=== PATIENT | male | born 1955 | race Caucasian/White ===

== ENCOUNTER 2021-01-03 15:05 | Outpatient (REF) | payer MEDICARE, SELFPAY ==
[2021-01-03 16:48] LABS: Anion Gap 14 (12-20); Blood Urea Nitrogen 28 mg/dL (9-16); Calcium 9.1 mg/dL (8.4-10.2); Carbon Dioxide 27 mmol/L (22-29); Chloride 100 mmol/L (96-108); Estimated Glomerular Filt Rate 48; Glucose Random 108 mg/dL (60-115); Potassium 4.5 mmol/L (3.3-5.1); Sodium 136 mmol/L (135-145)
== END 2021-01-03 15:06 | disposition home or self-care (01) ==
LOC: HO.HMGCLDS 15:05
PROVIDERS: PCP Internal Medicine; Visit Provider Internal Medicine
DX: I10 Essential (primary) hypertension (principal); E78.9 Disorder of lipoprotein metabolism, unspecified; R79.89 Other specified abnormal findings of blood chemistry
CPT/HCPCS: 36415; 80048

== ENCOUNTER 2021-06-25 14:53 | Outpatient (REF) | payer MEDICARE, SELFPAY ==
[2021-06-25 16:29] LABS: MANUAL DIFF FLAG NO
[2021-06-25 16:34] LABS: Glucose Urine UA NEG (NEG); Leukocyte Esterase Urine NEG (NEG); Nitrite Urine NEG (NEG); Specific Gravity - Urine >= 1.030 (1.005-1.025); Urine Blood NEG (NEG); Urine Ketones NEG (NEG); Urine Protein NEG (NEG-TRACE)
[2021-06-25 16:35] LABS: Appearance Urine CLEAR; Color Urine YELLOW
[2021-06-25 16:37] LABS: Hemoglobin 15.1 g/dl (14.0-18.0)
[2021-06-25 16:39] LABS: Basophils Percent Auto 0.3 % (0-2); Eosinophils Absolute Auto 0.1 X10*3/uL (0.0-0.4); Eosinophils Percent Auto 1.2 % (0-4); Hematocrit 44.8 % (42-52); Hemoglobin 15.2 g/dl (14.0-18.0); Imm Gran Abs Auto 0.05 X10*3/uL (0.00-0.03); Imm Gran Pct Auto 0.7 % (0.0-0.4); Lymphocytes Absolute Auto 1.5 X10*3/uL (1.2-4.9); Lymphocytes Percent Auto 19.7 % (20-40); Mean Corpuscular HGB Conc 33.9 g/dl (31.0-36.0); Mean Corpuscular Hemoglobin 34.8 pg (27.0-33.0); Mean Corpuscular Volume 102.5 fL (80-98); Mean Platelet Volume 11.1 fL (9.4-12.4); Monocytes Absolute Auto 0.7 X10*3/uL (0.1-1.2); Monocytes Percent Auto 8.7 % (2-11); Neutrophils Absolute Auto 5.3 X10*3/uL (2.0-8.3); Neutrophils Percent Auto 69.4 % (45-73); Platelet Count 177 X10*3/uL (160-400); Red Blood Count 4.37 X10*6/uL (4.60-5.80); Red Cell Distribution Width 12.8 % (11.0-16.0); White Blood Count 7.6 X10*3/uL (4.8-10.8)
[2021-06-25 16:51] LABS: Bacteria Urine 1+ /LPF; RBC Urine 0 /HPF (0); WBC Urine 0 /HPF (0-4)
[2021-06-25 16:56] LABS: Anion Gap 14 (12-20); Blood Urea Nitrogen 20 mg/dL (9-16); Calcium 9.2 mg/dL (8.4-10.2); Carbon Dioxide 26 mmol/L (22-29); Chloride 104 mmol/L (96-108); Estimated Glomerular Filt Rate 55; Sodium 139 mmol/L (135-145)
[2021-06-25 18:00] LABS: Creatinine Urine 245.01 mg/dL; Microalbum/Creatinine Ratio Ur 6.1 ug/mg cr; Protein/Creatinine Ratio, Ur 0.05 (<0.2); Total Protein Urine Random 12 mg/dL (<12)
== END 2021-06-25 14:54 | disposition home or self-care (01) ==
LOC: HO.HMGCLDS 14:53
PROVIDERS: PCP Internal Medicine; Visit Provider Internal Medicine
DX: I10 Essential (primary) hypertension (principal); R79.89 Other specified abnormal findings of blood chemistry; N28.9 Disorder of kidney and ureter, unspecified
CPT/HCPCS: 36415; 80051; 81001; 82043; 82310; 82565; 84156; 84520; 85014; 85018; 85025

== ENCOUNTER 2021-08-23 12:22 | Outpatient (REF) | payer MEDICARE, SELFPAY ==
[2021-08-26 04:10] LABS: SARS COV2 IgG Negative (Negative)
== END 2021-08-23 12:23 | disposition home or self-care (01) ==
LOC: HO.HMGCLDS 12:22
PROVIDERS: PCP Internal Medicine; Visit Provider Internal Medicine
DX: Z01.84 Encounter for antibody response examination (principal)
CPT/HCPCS: 36415; 86769

== ENCOUNTER 2022-03-05 12:24 | Outpatient (REF) | payer OTHER, MEDICARE, SELFPAY ==
[2022-03-05 14:24] LABS: TSH reflex Free T4 7.17 uIU/mL (0.32-4.0)
[2022-03-05 14:34] LABS: Alanine Aminotransferase 12 U/L (0-40); Albumin Level 3.9 g/dL (3.5-5.0); Alkaline Phosphatase 79 U/L (39-117); Anion Gap 14 (12-20); Aspartate Amino Transferase 17 U/L (5-37); Bilirubin Total 0.6 mg/dL (0.0-1.0); Blood Urea Nitrogen 16 mg/dL (9-16); Calcium 9.8 mg/dL (8.4-10.2); Carbon Dioxide 26 mmol/L (22-29); Chloride 104 mmol/L (96-108); Estimated Glomerular Filt Rate > 60; Glucose Random 110 mg/dL (60-115); Sodium 138 mmol/L (135-145); Total Protein 6.9 g/dL (6.5-8.0)
[2022-03-05 15:37] LABS: Free T4 (Free Thyroxine) 1.06 ng/dL (0.71-1.85)
[2022-03-06 05:04] LABS: SARS COV2 IgG Positive (Negative)
== END 2022-03-05 12:25 | disposition home or self-care (01) ==
LOC: HO.HMGCLDS 12:24
PROVIDERS: PCP Internal Medicine; Visit Provider Internal Medicine
DX: E78.9 Disorder of lipoprotein metabolism, unspecified (principal); F41.1 Generalized anxiety disorder; I10 Essential (primary) hypertension; J06.9 Acute upper respiratory infection, unspecified; N28.9 Disorder of kidney and ureter, unspecified; E03.8 Other specified hypothyroidism
CPT/HCPCS: 36415; 80053; 84439; 84443; 86769

== ENCOUNTER 2022-06-04 14:54 | Outpatient (REF) | payer OTHER, SELFPAY ==
[2022-06-04 16:55] LABS: Alanine Aminotransferase 10 U/L (0-40); Alkaline Phosphatase 79 U/L (39-117); Anion Gap 14 (12-20); Aspartate Amino Transferase 16 U/L (5-37); Bilirubin Total 0.7 mg/dL (0.0-1.0); Blood Urea Nitrogen 23 mg/dL (9-16); Calcium 8.8 mg/dL (8.4-10.2); Carbon Dioxide 24 mmol/L (22-29); Chloride 107 mmol/L (96-108); Estimated Glomerular Filt Rate 49; Glucose Random 110 mg/dL (60-115); Potassium 4.7 mmol/L (3.3-5.1); Sodium 140 mmol/L (135-145); Total Protein 6.6 g/dL (6.5-8.0)
[2022-06-04 17:15] LABS: TSH reflex Free T4 2.89 uIU/mL (0.32-4.0)
== END 2022-06-04 14:55 | disposition home or self-care (01) ==
LOC: HO.HMGCLDS 14:54
PROVIDERS: PCP Internal Medicine; Visit Provider Internal Medicine
DX: E78.9 Disorder of lipoprotein metabolism, unspecified (principal); F41.1 Generalized anxiety disorder; I10 Essential (primary) hypertension; N28.9 Disorder of kidney and ureter, unspecified; N52.9 Male erectile dysfunction, unspecified; E03.8 Other specified hypothyroidism; F17.200 Nicotine dependence, unspecified, uncomplicated
CPT/HCPCS: 36415; 80053; 84443

== ENCOUNTER 2022-09-03 14:43 | Outpatient (REF) | payer OTHER, SELFPAY ==
[2022-09-03 16:47] LABS: MANUAL DIFF FLAG NO
[2022-09-03 17:00] LABS: Basophils Percent Auto 0.5 % (0-2); Eosinophils Absolute Auto 0.1 X10*3/uL (0.0-0.4); Eosinophils Percent Auto 1.7 % (0-4); Hematocrit 45.2 % (42.0-52.0); Hemoglobin 15.2 g/dl (14.0-18.0); Imm Gran Abs Auto 0.02 X10*3/uL (0.00-0.03); Imm Gran Pct Auto 0.3 % (0.0-0.4); Lymphocytes Absolute Auto 1.6 X10*3/uL (1.2-4.9); Lymphocytes Percent Auto 26.2 % (20-40); Mean Corpuscular HGB Conc 33.6 g/dl (31.0-36.0); Mean Corpuscular Hemoglobin 33.6 pg (27.0-33.0); Mean Platelet Volume 11.2 fL (9.4-12.4); Monocytes Absolute Auto 0.6 X10*3/uL (0.1-1.2); Monocytes Percent Auto 9.7 % (2-11); Neutrophils Absolute Auto 3.7 x10*3/uL (2.0-8.3); Neutrophils Percent Auto 61.6 % (45-73); Platelet Count 167 X10*3/uL (160-400); Red Blood Count 4.52 X10*6/uL (4.60-5.80); Red Cell Distribution Width 13.1 % (11.0-16.0)
[2022-09-03 17:12] LABS: Alanine Aminotransferase 9 U/L (0-40); Alkaline Phosphatase 80 U/L (39-117); Anion Gap 15 (12-20); Aspartate Amino Transferase 16 U/L (5-37); Bilirubin Total 0.5 mg/dL (0.0-1.0); Blood Urea Nitrogen 17 mg/dL (9-16); Calcium 9.5 mg/dL (8.4-10.2); Carbon Dioxide 27 mmol/L (22-29); Chloride 103 mmol/L (96-108); Estimated Glomerular Filt Rate 53; Glucose Random 100 mg/dL (60-115); Potassium 4.9 mmol/L (3.3-5.1); Sodium 140 mmol/L (135-145); Total Protein 6.6 g/dL (6.5-8.0)
== END 2022-09-03 14:44 | disposition home or self-care (01) ==
LOC: HO.HMGCLDS 14:43
PROVIDERS: PCP Internal Medicine; Visit Provider Internal Medicine
DX: E78.9 Disorder of lipoprotein metabolism, unspecified (principal); F41.1 Generalized anxiety disorder; E03.8 Other specified hypothyroidism; R79.89 Other specified abnormal findings of blood chemistry; I10 Essential (primary) hypertension; N28.9 Disorder of kidney and ureter, unspecified; F17.200 Nicotine dependence, unspecified, uncomplicated; N52.9 Male erectile dysfunction, unspecified
CPT/HCPCS: 36415; 80053; 85025

== ENCOUNTER 2022-12-26 15:20 | Outpatient (REF) | payer OTHER, SELFPAY ==
[2022-12-26 16:30] LABS: MANUAL DIFF FLAG NO
[2022-12-26 16:32] LABS: Basophils Percent Auto 0.5 % (0-2); Eosinophils Absolute Auto 0.1 X10*3/uL (0.0-0.4); Eosinophils Percent Auto 1.5 % (0-4); Hematocrit 45.8 % (42.0-52.0); Hemoglobin 15.8 g/dl (14.0-18.0); Imm Gran Abs Auto 0.03 X10*3/uL (0.00-0.03); Imm Gran Pct Auto 0.5 % (0.0-0.4); Lymphocytes Absolute Auto 1.5 X10*3/uL (1.2-4.9); Lymphocytes Percent Auto 22.7 % (20-40); Mean Corpuscular HGB Conc 34.5 g/dl (31.0-36.0); Mean Corpuscular Hemoglobin 34.6 pg (27.0-33.0); Mean Corpuscular Volume 100.2 fL (80.0-98.0); Mean Platelet Volume 11.1 fL (9.4-12.4); Monocytes Absolute Auto 0.5 X10*3/uL (0.1-1.2); Neutrophils Absolute Auto 4.4 x10*3/uL (2.0-8.3); Neutrophils Percent Auto 66.8 % (45-73); Platelet Count 138 X10*3/uL (160-400); Red Blood Count 4.57 X10*6/uL (4.60-5.80); Red Cell Distribution Width 12.8 % (11.0-16.0); White Blood Count 6.5 X10*3/uL (4.8-10.8)
[2022-12-26 17:12] LABS: Alanine Aminotransferase 18 U/L (0-40); Alkaline Phosphatase 72 U/L (39-117); Anion Gap 14 (12-20); Aspartate Amino Transferase 21 U/L (5-37); Bilirubin Total 0.8 mg/dL (0.0-1.0); Blood Urea Nitrogen 17 mg/dL (9-16); Calcium 9.3 mg/dL (8.4-10.2); Carbon Dioxide 25 mmol/L (22-29); Chloride 103 mmol/L (96-108); Estimated Glomerular Filt Rate 58; Glucose Random 91 mg/dL (60-115); Potassium 4.9 mmol/L (3.3-5.1); Sodium 137 mmol/L (135-145); Total Protein 6.4 g/dL (6.5-8.0)
[2022-12-26 17:26] LABS: TSH reflex Free T4 3.51 uIU/mL (0.32-4.0)
[2022-12-27 08:59] LABS: LDL Cholesterol Direct 56 mg/dL (<100)
== END 2022-12-26 15:21 | disposition home or self-care (01) ==
LOC: HO.HMGCLDS 15:20
PROVIDERS: PCP Internal Medicine; Visit Provider Internal Medicine
DX: E03.8 Other specified hypothyroidism (principal); E78.9 Disorder of lipoprotein metabolism, unspecified; F41.1 Generalized anxiety disorder; H53.8 Other visual disturbances; H91.90 Unspecified hearing loss, unspecified ear; I10 Essential (primary) hypertension; N28.9 Disorder of kidney and ureter, unspecified; F17.200 Nicotine dependence, unspecified, uncomplicated
CPT/HCPCS: 36415; 80053; 83721; 84443; 85025

== ENCOUNTER 2023-06-15 14:58 | Outpatient (REF) | payer OTHER, SELFPAY ==
[2023-06-15 16:23] LABS: MANUAL DIFF FLAG NO
[2023-06-15 16:31] LABS: Basophils Percent Auto 0.3 % (0-2); Eosinophils Absolute Auto 0.1 X10*3/uL (0.0-0.4); Eosinophils Percent Auto 2.1 % (0-4); Hematocrit 42.3 % (42.0-52.0); Hemoglobin 14.3 g/dl (14.0-18.0); Imm Gran Abs Auto 0.01 X10*3/uL (0.00-0.03); Imm Gran Pct Auto 0.2 % (0.0-0.4); Lymphocytes Absolute Auto 1.7 X10*3/uL (1.2-4.9); Lymphocytes Percent Auto 27.3 % (20-40); Mean Corpuscular HGB Conc 33.8 g/dl (31.0-36.0); Mean Corpuscular Hemoglobin 35.2 pg (27.0-33.0); Mean Corpuscular Volume 104.2 fL (80.0-98.0); Monocytes Absolute Auto 0.5 X10*3/uL (0.1-1.2); Monocytes Percent Auto 8.9 % (2-11); Neutrophils Absolute Auto 3.7 x10*3/uL (2.0-8.3); Neutrophils Percent Auto 61.2 % (45-73); Platelet Count 145 X10*3/uL (160-400); Red Blood Count 4.06 X10*6/uL (4.60-5.80); White Blood Count 6.1 X10*3/uL (4.8-10.8)
[2023-06-15 17:00] LABS: Alanine Aminotransferase 16 U/L (0-40); Albumin Level 3.8 g/dL (3.5-5.0); Alkaline Phosphatase 71 U/L (39-117); Anion Gap 9 (12-20); Aspartate Amino Transferase 19 U/L (5-37); Bilirubin Total 0.5 mg/dL (0.0-1.0); Blood Urea Nitrogen 21 mg/dL (9-16); Calcium 9.1 mg/dL (8.4-10.2); Carbon Dioxide 28 mmol/L (22-29); Chloride 102 mmol/L (96-108); Cholesterol 117 mg/dL; Estimated Glomerular Filt Rate > 60; Glucose Fasting 101 mg/dL (60-99); HDL Cholesterol 32 mg/dL; LDL Cholesterol Calculated 57 mg/dl; Potassium 4.8 mmol/L (3.3-5.1); Sodium 134 mmol/L (135-145); Total Protein 6.6 g/dL (6.5-8.0); Triglycerides 144 mg/dL
[2023-06-15 17:01] LABS: TSH reflex Free T4 3.73 uIU/mL (0.32-4.0)
== END 2023-06-15 14:59 | disposition home or self-care (01) ==
LOC: HO.HMGCLDS 14:58
PROVIDERS: PCP Internal Medicine; Visit Provider Internal Medicine
DX: E03.8 Other specified hypothyroidism (principal); E78.9 Disorder of lipoprotein metabolism, unspecified; N28.9 Disorder of kidney and ureter, unspecified; I10 Essential (primary) hypertension; F41.1 Generalized anxiety disorder; F17.200 Nicotine dependence, unspecified, uncomplicated
CPT/HCPCS: 36415; 80053; 80061; 84443; 85025

== ENCOUNTER 2023-07-14 10:22 | Outpatient (AMB) | payer OTHER, SELFPAY ==
[2023-07-14 10:27] VITALS: BP 138/78; PULSE 59; O2SAT 95; BMI 29.8
--- NOTE | 2023-07-14 10:27 | MHC.PC.OV ---
Vital Signs 07/14/23 10:27 Height 6 ft 2 in Weight 232 lb 4 oz BMI 29.8 BP 138/78 Blood Pressure Location Lt brachial Position Sitting Pulse 59 Pulse Source Pulse Oximeter Pulse Oximetry (%) 95 Oxygen Delivery Method Room Air Intake Visit Reasons: 3M. F/U-Medications Allergies celecoxib [Celebrex] Allergy (Unknown, Verified 07/14/23 10:28) worst knee pain and swelling clopidogrel [Plavix] Allergy (Unknown, Verified 07/14/23 10:28) rash azithromycin Adverse Reaction (Unknown, Verified 07/14/23 10:28) N/V Medication List - Last Reconciled 07/14/23 by Josué Saxena MD alprazolam 1 mg PO DAILY 30 days atorvastatin 40 mg PO DAILY 90 days carvedilol 12.5 mg PO BID 90 days cetirizine (Zyrtec) 10 mg PO DAILY PRN 90 days fluoxetine 40 mg (2 x 20 mg) PO DAILY 90 days hydrochlorothiazide 25 mg PO DAILY levothyroxine 50 mcg PO DAILY 90 days lisinopril 20 mg PO DAILY 90 days tadalafil 5 mg PO DAILY 90 days Tobacco use date assessed: 07/14/23 Fall risk assessment: 1 Fall in past year Last assessed Fall Risk: 07/14/23 Dental Screening Dental Screen Date: 07/14/23 Did you have a dental visit in the last 12 months?: No Did you have a dental problem in the last 6 months where you did not have access to dental care?: No Was dental information given to patient?: No HPI 3M. F/U-Medications HPI Details Patient is 68-year-old gentleman came in today for his 3 month follow-up appointment for medication refill. Patient was trying to get something from under the table and caused skin injury to his left wrist, he has of 1 by half an inch open area of skin flap no signs of infection we has applied dressing He is stable at this time taking all his medications, his significant other is dealing with medical issues patient there is a lot of stress because of that Continue to smoke once again instructed patient to stop smoking CALLUM, he is cutting down gradually he tells me Blood pressure is well controlled , he is taking lisinopril 20 mg, hydrochlorothiazide 25 mg and carvedilol 12.5 mg b.i.d.. Lipids are controlled with atorvastatin 40 mg Patient is taking fluoxetine 40 mg 2 tablets daily for anxiety control along with alprazolam 1 mg at night, script sent for 3 months, complying with the treatment plan no signs of abuse Nephropathy:? Kidney function stable will continue to monitor BMI elevated need to lose weight Labs done recently reviewed fasting sugar is 101 His sodium is 134 we will continue to monitor that. 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 He has an eye exam coming up with Ophthalmology. Follow-up 3 months?? [facility] Medical History Anxiety, generalized Elevated serum creatinine Hypertension, essential Lipid disorder Other specified hypothyroidism Surgical History History of angioplasty History of lumbar discectomy Family History Father Alzheimer's disease Mother Respiratory failure Tuberculosis Maternal Grandfather No problems noted. Maternal Grandmother Stroke Paternal Grandfather No problems noted. Paternal Grandmother Parkinson disease Brother No problems noted. Brother No problems noted. Brother No problems noted. Brother No problems noted. Daughter No problems noted. Social History Housing: House Patient Tobacco Use Status: Current everyday Tobacco user Tobacco use type: Cigarette Cigarette Packs Per Day: 1 Years Smoked: 50 plus e-Cigarette/Vaping Use: Never Used service: No Current occupational status: retired and disabled Cognitive needs: No Hearing needs: No Vision needs: No Questionnaire PHQ-9 Over the last 2 weeks, how often have you been bothered by any of the following problems? 1. Little interest or pleasure in doing things: not at all 2. Feeling down, depressed, or hopeless: not at all 3. Trouble falling or staying asleep, or sleeping too much: more than half the days 4. Feeling tired or having little energy: more than half the days 5. Poor appetite or overeating: not at all 6. Feeling bad about yourself - or that you are a failure or have let yourself or your family down: not at all 7. Trouble concentrating on things, such as reading the newspaper or watching television: not at all 8. Moving or speaking so slowly that other people could have noticed. Or the opposite - being so fidgety or restless that you have been moving around a lot more than usual: not at all 9. Thoughts that you would be better off or of hurting yourself in some way: not at all Total score: 4 Depression Screening Interpretation: Negative 75763 - PHQ-9 Billing: Yes Source: Developed by Drs. Peewee Pate, Severiano Dumas and colleagues, with an educational erica from [employer]. Thrive Questionnaire Date Thrive assessed: 06/26/21 AUDIT C Alcohol Use Questionnaire (AUDIT-C) 1. How often do you have a drink containing alcohol?: Never 3. How often do you have six or more drinks on one occasion?: Never Total Score: 0 Score Reviewed/Action Taken: Yes MELLISA-7 AMB Questionnaire MELLISA-7 Feeling nervous, anxious, or on edge: 2 = More than half the days Not being able to stop or control worryin = More than half the days Worrying too much about different things: 2 = More than half the days Trouble relaxin = More than half the days Being so restless that it is hard to sit still: 2 = More than half the days Becoming easily annoyed or irritable: 2 = More than half the days Feeling afraid as if something awful might happen: 2 = More than half the days Total MELLISA-7 score (0-4 normal; 5-9 mild; 10-14 moderate; 15-21 severe): 14 Source: Developed by Drs. Peewee Pate, Christiane Glynn, Severiano Retana and colleagues, with an educational erica from [employer]. MELLISA-7 Assessment Billing MELLISA-7 Assessment Tool: MELLISA-7 Assessment 57454 Review of Systems Const Denies chills and Denies fever(s) ENT Denies epistaxis and Denies nasal discharge Card Denies chest pain Resp Denies chest congestion, Denies cough and Denies hemoptysis GI Denies diarrhea and Denies nausea Skin/Breast Denies rash Neuro Reports no additional complaints Psych Reports no additional complaints Endo Reports no additional complaints Physical exam (Primary Care) Vital Signs: Last Vital Signs Pulse 59 07/14/23 10:27 BP 138/78 07/14/23 10:27 Pulse Ox 95 07/14/23 10:27 Oxygen Delivery Method Room Air 07/14/23 10:27 BMI result Body Mass Index 29.8 Tobacco/Smoking Status: Tobacco use Status Tobacco use date assessed 07/14/23 07/14/23 10:30 Patient Tobacco Use Status Current everyday Tobacco 07/14/23 10:30 Tobacco use type Cigarette 07/14/23 10:30 e-Cigarette/Vaping Use Never Used 07/14/23 10:30 Depression Screening Interpretation: Negative Thrive Assessment: Date of Thrive Assessment Date Thrive assessed 06/26/21 07/14/23 10:30 Const General: cooperative, comfortable and no acute distress Orientation/consciousness: patient oriented x3 HENMT Head: Yes normocephalic Eyes General: appearance normal, both eyes and all related structures Neck Neck: Yes supple Resp Effort & Inspection: normal respiratory effort, no cough and no stridor Cardio Rhythm: regular rhythm Heart sounds: S1 normal heart sound present and S2 normal heart sound present Skin General skin exam: turgor normal Full body images: 1. 1 in by-inch open skin flap, no signs of infection 2. Large area of ecchymosis Neuro General: patient oriented x3, tone normal and moves all extremities Extrem Right lower extremity: no edema Left lower extremity: no edema Immunizations Boostrix Tdap Performing Provider: Josué Saxena MD Administered by: Rufus Sanabria CMA on 07/14/23 11:34 Dose Route Admin Location Lot Number Expiration Date [employer] Seat 0.5 mL IM Left Deltoid [id number] 09/02/25 14659-504-06 [employer] VIS Given Date VIS Provided VIS Publication Date 07/14/23 Single Vaccine 21 Eligibility Eligibility Date Funding Source Not [facility] Eligible 07/14/23 Private Assessment and Plan Assessment & Plan (1) Lipid disorder: Code(s): E78.9 - Disorder of lipoprotein metabolism, unspecified (2) Anxiety, generalized: Code(s): F41.1 - Generalized anxiety disorder (3) Other specified hypothyroidism: Code(s): E03.8 - Other specified hypothyroidism (4) Hypertension, essential: Code(s): I10 - Essential (primary) hypertension (5) Nephropathy: Code(s): N28.9 - Disorder of kidney and ureter, unspecified (6) Tobacco use disorder: Code(s): F17.200 - Nicotine dependence, unspecified, uncomplicated (7) Blind left eye: Code(s): H54.40 - Blindness, one eye, unspecified eye (8) Difficulty sleeping: Code(s): G47.9 - Sleep disorder, unspecified (9) Open wound of left wrist without complication: Code(s): S61.502A - Unspecified open wound of left wrist, initial encounter (10) Pre-diabetes: Code(s): R73.03 - Prediabetes Plan Patient is 68-year-old gentleman came in today for his 3 month follow-up appointment for medication refill. Patient was trying to get something from under the table and caused skin injury to his left wrist, he has of 1 by half an inch open area of skin flap no signs of infection we has applied dressing He is stable at this time taking all his medications, his significant other is dealing with medical issues patient there is a lot of stress because of that Continue to smoke once again instructed patient to stop smoking CALLUM, he is cutting down gradually he tells me Blood pressure is well controlled , he is taking lisinopril 20 mg, hydrochlorothiazide 25 mg and carvedilol 12.5 mg b.i.d.. Lipids are controlled with atorvastatin 40 mg Patient is taking fluoxetine 40 mg 2 tablets daily for anxiety control along with alprazolam 1 mg at night, script sent for 3 months, complying with the treatment plan no signs of abuse Nephropathy:? Kidney function stable will continue to monitor BMI elevated need to lose weight Labs done recently reviewed fasting sugar is 101 His sodium is 134 we will continue to monitor that. 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 He has an eye exam coming up with Ophthalmology. Follow-up 3 months?? Orders: Orders Comprehensive Met. Panel Today E03.8 - Other specified hypothyroidism, E78.9 - Disorder of lipoprotein metabolism, unspecified, F17.200 - Nicotine dependence, unspecified, uncomplicated, F41.1 - Generalized anxiety disorder, G47.9 - Sleep disorder, unspecified, H54.40 - Blindness, one eye, unspecified eye, I10 - Essential (primary) hypertension, N28.9 - Disorder of kidney and ureter, unspecified Hemoglobin A1c Today E03.8 - Other specified hypothyroidism, E78.9 - Disorder of lipoprotein metabolism, unspecified, F17.200 - Nicotine dependence, unspecified, uncomplicated, F41.1 - Generalized anxiety disorder, G47.9 - Sleep disorder, unspecified, H54.40 - Blindness, one eye, unspecified eye, I10 - Essential (primary) hypertension, N28.9 - Disorder of kidney and ureter, unspecified TDaP Immunization Today Z23 - Encounter for immunization Medications: Refilled alprazolam 1 mg PO DAILY 30 tabs 3RF 30 days F41.1 - Generalized anxiety disorder atorvastatin 40 mg PO DAILY 90 tabs 1RF 90 days E78.9 - Disorder of lipoprotein metabolism, unspecified carvedilol must administer with a meal/food 12.5 mg PO BID 180 tabs 1RF 90 days cetirizine (Zyrtec) 10 mg PO DAILY PRN 90 caps 1RF allergy symptoms 90 days fluoxetine 40 mg (2 x 20 mg) PO DAILY 180 caps 3RF 90 days hydrochlorothiazide 25 mg PO DAILY 90 tabs 1RF levothyroxine 50 mcg PO DAILY 90 tabs 1RF 90 days E03.8 - Other specified hypothyroidism lisinopril 20 mg PO DAILY 90 tabs 1RF 90 days I10 - Essential (primary) hypertension tadalafil 5 mg PO DAILY 90 tabs 1RF 90 days Coding Level of Care Code Est Pt Level 4 (56123) Diagnoses Lipid disorder E78.9 Anxiety, generalized F41.1 Other specified hypothyroidism E03.8 Hypertension, essential I10 Nephropathy N28.9 Tobacco use disorder F17.200 Blind left eye H54.40 Difficulty sleeping G47.9 Open wound of left wrist without complication S61.502A Pre-diabetes R73.03 Additional Codes MELLISA-7 Assessment Billing - MELLISA-7 Assessment Tool: MELLISA-7 Assessment [id number] ([id number])
== END 2023-07-14 11:39 | disposition home or self-care (01) ==
PROVIDERS: PCP Internal Medicine; Visit Provider Internal Medicine
DX: I10 Essential (primary) hypertension (principal); E03.8 Other specified hypothyroidism; F17.210 Nicotine dependence, cigarettes, uncomplicated; Z23 Encounter for immunization; E78.9 Disorder of lipoprotein metabolism, unspecified; F41.1 Generalized anxiety disorder; N28.9 Disorder of kidney and ureter, unspecified; H54.40 Blindness, one eye, unspecified eye; G47.9 Sleep disorder, unspecified; S61.502A Unspecified open wound of left wrist, initial encounter; R73.03 Prediabetes
CPT/HCPCS: 90471; 90715; 99214

== ENCOUNTER 2023-10-13 12:50 | Outpatient (AMB) | payer OTHER, SELFPAY ==
[2023-10-13 13:00] VITALS: BP 136/88; PULSE 62; O2SAT 95; BMI 30.5
--- NOTE | 2023-10-13 13:00 | A.OFFPC_ITS ---
Vital Signs 10/13/23 13:00 Height 6 ft 2 in Weight 237 lb 8 oz BMI 30.5 BP 136/88 Blood Pressure Location Rt brachial Position Sitting Pulse 62 Pulse Source Pulse Oximeter Pulse Oximetry (%) 95 Oxygen Delivery Method Room Air Intake Visit Reasons: 3 month fu Allergies celecoxib [Celebrex] Allergy (Unknown, Verified 10/13/23 13:00) worst knee pain and swelling clopidogrel [Plavix] Allergy (Unknown, Verified 10/13/23 13:00) rash azithromycin Adverse Reaction (Unknown, Verified 10/13/23 13:00) N/V Medication List - Last Reconciled 10/13/23 by Josué Saxena MD alprazolam 1 mg PO DAILY 30 days atorvastatin 40 mg PO DAILY 90 days carvedilol 12.5 mg PO BID 90 days cetirizine (Zyrtec) 10 mg PO DAILY PRN 90 days fluoxetine 40 mg (2 x 20 mg) PO DAILY 90 days hydrochlorothiazide 25 mg PO DAILY levothyroxine 50 mcg PO DAILY 90 days lisinopril 20 mg PO DAILY 90 days tadalafil 5 mg PO DAILY 90 days Tobacco use date assessed: 10/13/23 Fall risk assessment: No Falls in past year Last assessed Fall Risk: 10/13/23 Dental Screening Dental Screen Date: 10/13/23 Did you have a dental visit in the last 12 months?: No Did you have a dental problem in the last 6 months where you did not have access to dental care?: No Was dental information given to patient?: No HPI 3 month fu HPI Details Patient is 68-year-old gentleman came in today for his 3 month follow- up appointment for medication refill. Patient is in his usual state of health He had a cataract surgery right eye and is now having more issues with vision. He says that he has appointment coming up with the eye doctor in few days. Patient is blind in left eye Continue to smoke once again instructed patient to stop smoking CALLUM, he is cutting down gradually he tells me Blood pressure is well controlled , he is taking lisinopril 20 mg, hydrochlorothiazide 25 mg and carvedilol 12.5 mg b.i.d.. Lipids are controlled with atorvastatin 40 mg Patient is taking fluoxetine 40 mg 2 tablets daily for anxiety control along with alprazolam 1 mg at night, script sent for 3 months, complying with the treatment plan no signs of abuse Nephropathy:? Kidney function stable will continue to monitor BMI elevated need to lose weight Labs are needed before next visit Follow-up 3 months?? [facility] Medical History Hypertension, essential Elevated serum creatinine Other specified hypothyroidism Anxiety, generalized Lipid disorder Surgical History History of lumbar discectomy History of angioplasty Family History Father Alzheimer's disease Mother Respiratory failure Tuberculosis Maternal Grandfather No problems noted. Maternal Grandmother Stroke Paternal Grandfather No problems noted. Paternal Grandmother Parkinson disease Brother No problems noted. Brother No problems noted. Brother No problems noted. Brother No problems noted. Daughter No problems noted. Housing: House Patient Tobacco Use Status: Current everyday Tobacco user Tobacco use type: Cigarette Cigarette Packs Per Day: 1 Years Smoked: 50 plus e-Cigarette/Vaping Use: Never Used service: No Current occupational status: retired and disabled Cognitive needs: No Hearing needs: No Vision needs: No Questionnaire PHQ-9 Over the last 2 weeks, how often have you been bothered by any of the following problems? 1. Little interest or pleasure in doing things: not at all 2. Feeling down, depressed, or hopeless: not at all 3. Trouble falling or staying asleep, or sleeping too much: more than half the days 4. Feeling tired or having little energy: more than half the days 5. Poor appetite or overeating: not at all 6. Feeling bad about yourself - or that you are a failure or have let yourself or your family down: not at all 7. Trouble concentrating on things, such as reading the newspaper or watching television: not at all 8. Moving or speaking so slowly that other people could have noticed. Or the opposite - being so fidgety or restless that you have been moving around a lot more than usual: not at all 9. Thoughts that you would be better off or of hurting yourself in some way: not at all Total score: 4 Depression Screening Interpretation: Negative Depression Screening Done: Yes 58574 - PHQ-9 Billing: Yes Source: Developed by Drs. Peewee Pate, Christiane Glynn, Severiano Retana and colleagues, with an educational erica from [employer]. Thrive Questionnaire Date Thrive assessed: 06/26/21 AUDIT C Alcohol Use Questionnaire (AUDIT-C) 1. How often do you have a drink containing alcohol?: Never 3. How often do you have six or more drinks on one occasion?: Never Total Score: 0 Score Reviewed/Action Taken: Yes Review of Systems Const Denies chills and Denies fever(s) ENT Denies epistaxis and Denies nasal discharge Card Denies chest pain Resp Denies chest congestion, Denies cough and Denies hemoptysis GI Denies diarrhea and Denies nausea Skin/Breast Denies rash Neuro Reports no additional complaints Psych Reports no additional complaints Endo Reports no additional complaints Physical exam (Primary Care) Vital Signs: Last Vital Signs Pulse 62 10/13/23 13:00 BP 136/88 10/13/23 13:00 Pulse Ox 95 10/13/23 13:00 Oxygen Delivery Method Room Air 10/13/23 13:00 BMI result Body Mass Index 30.5 Tobacco/Smoking Status: Tobacco use Status Tobacco use date assessed 10/13/23 10/13/23 13:01 Patient Tobacco Use Status Current everyday Tobacco 10/13/23 13:01 Tobacco use type Cigarette 10/13/23 13:01 e-Cigarette/Vaping Use Never Used 10/13/23 13:01 PHQ-9: PHQ-9 Score PHQ-9: Total score 4 10/13/23 13:23 Depression Screening Interpretation: Negative Thrive Assessment: Date of Thrive Assessment Date Thrive assessed 06/26/21 10/13/23 13:01 Const General: cooperative, comfortable and no acute distress Orientation/consciousness: patient oriented x3 HENMT Head: Yes normocephalic Neck Neck: Yes supple Resp Effort & Inspection: normal respiratory effort, no cough and no stridor Cardio Rhythm: regular rhythm Heart sounds: S1 normal heart sound present and S2 normal heart sound present Skin General skin exam: turgor normal Neuro General: patient oriented x3, tone normal and moves all extremities Extrem Right lower extremity: no edema Left lower extremity: no edema Assessment and Plan Assessment & Plan (1) Anxiety, generalized: Code(s): F41.1 - Generalized anxiety disorder (2) Other specified hypothyroidism: Code(s): E03.8 - Other specified hypothyroidism (3) Hypertension, essential: Code(s): I10 - Essential (primary) hypertension (4) Nephropathy: Code(s): N28.9 - Disorder of kidney and ureter, unspecified (5) Lipid disorder: Code(s): E78.9 - Disorder of lipoprotein metabolism, unspecified (6) Tobacco use disorder: Code(s): F17.200 - Nicotine dependence, unspecified, uncomplicated (7) Blind left eye: Code(s): H54.40 - Blindness, one eye, unspecified eye Qualifiers: Right eye visual impairment category: right - unspecified low vision Qualified Code(s): H54.10 - Blindness, one eye, low vision other eye, unspecified eyes (8) Difficulty sleeping: Code(s): G47.9 - Sleep disorder, unspecified (9) Pre-diabetes: Code(s): R73.03 - Prediabetes Plan Patient is 68-year-old gentleman came in today for his 3 month follow-up appointment for medication refill. Patient is in his usual state of health He had a cataract surgery right eye and is now having more issues with vision. He says that he has appointment coming up with the eye doctor in few days. Patient is blind in left eye Continue to smoke once again instructed patient to stop smoking CALLUM, he is cutting down gradually he tells me Blood pressure is well controlled , he is taking lisinopril 20 mg, hydrochlorothiazide 25 mg and carvedilol 12.5 mg b.i.d.. Lipids are controlled with atorvastatin 40 mg Patient is taking fluoxetine 40 mg 2 tablets daily for anxiety control along with alprazolam 1 mg at night, script sent for 3 months, complying with the treatment plan no signs of abuse Nephropathy:? Kidney function stable will continue to monitor BMI elevated need to lose weight Labs are needed before next visit Follow-up 3 months?? Orders: Orders Complete Blood Count Auto Diff Today E03.8 - Other specified hypothyroidism, E78.9 - Disorder of lipoprotein metabolism, unspecified, F17.200 - Nicotine dependence, unspecified, uncomplicated, F41.1 - Generalized anxiety disorder, G47.9 - Sleep disorder, unspecified, I10 - Essential (primary) hypertension, N28.9 - Disorder of kidney and ureter, unspecified, R73.03 - Prediabetes Lipid Panel Today E03.8 - Other specified hypothyroidism, E78.9 - Disorder of lipoprotein metabolism, unspecified, F17.200 - Nicotine dependence, unspecified, uncomplicated, F41.1 - Generalized anxiety disorder, G47.9 - Sleep disorder, unspecified, I10 - Essential (primary) hypertension, N28.9 - Disorder of kidney and ureter, unspecified, R73.03 - Prediabetes Comprehensive [place]. Panel Fast Today E03.8 - Other specified hypothyroidism, E78.9 - Disorder of lipoprotein metabolism, unspecified, F17.200 - Nicotine dependence, unspecified, uncomplicated, F41.1 - Generalized anxiety disorder, G47.9 - Sleep disorder, unspecified, I10 - Essential (primary) hypertension, N28.9 - Disorder of kidney and ureter, unspecified, R73.03 - Prediabetes Hemoglobin A1c Today E03.8 - Other specified hypothyroidism, E78.9 - Disorder of lipoprotein metabolism, unspecified, F17.200 - Nicotine dependence, unspecified, uncomplicated, F41.1 - Generalized anxiety disorder, G47.9 - Sleep disorder, unspecified, I10 - Essential (primary) hypertension, N28.9 - Disorder of kidney and ureter, unspecified, R73.03 - Prediabetes TSH reflex Free T4 Today E03.8 - Other specified hypothyroidism, E78.9 - Disorder of lipoprotein metabolism, unspecified, F17.200 - Nicotine dependence, unspecified, uncomplicated, F41.1 - Generalized anxiety disorder, G47.9 - Sleep disorder, unspecified, I10 - Essential (primary) hypertension, N28.9 - Disorder of kidney and ureter, unspecified, R73.03 - Prediabetes Medications: Refilled alprazolam 1 mg PO DAILY 30 days 30 tabs 3RF F41.1 - Generalized anxiety disorder Coding Level of Care Code Est Pt Level 4 (57921) Diagnoses Anxiety, generalized F41.1 Other specified hypothyroidism E03.8 Hypertension, essential I10 Nephropathy N28.9 Lipid disorder E78.9 Tobacco use disorder F17.200 Blindness of left eye with low vision in contralateral eye H54.10 Right eye visual impairment category: right - unspecified low vision Difficulty sleeping G47.9 Pre-diabetes R73.03
== END 2023-10-13 13:45 | disposition home or self-care (01) ==
PROVIDERS: PCP Internal Medicine; Visit Provider Internal Medicine
DX: F41.1 Generalized anxiety disorder (principal); E03.8 Other specified hypothyroidism; I10 Essential (primary) hypertension; N28.9 Disorder of kidney and ureter, unspecified; E78.9 Disorder of lipoprotein metabolism, unspecified; F17.200 Nicotine dependence, unspecified, uncomplicated; H54.10 Blindness, one eye, low vision other eye, unspecified eyes; G47.9 Sleep disorder, unspecified; R73.03 Prediabetes
CPT/HCPCS: 99214

== ENCOUNTER 2024-01-06 14:37 | Outpatient (AMB) | payer OTHER, SELFPAY ==
[2024-01-06 14:41] VITALS: BP 130/72; PULSE 46; O2SAT 98; BMI 30.7
--- NOTE | 2024-01-06 14:41 | MHC.PC.OV ---
Vital Signs 01/06/24 14:41 Height 6 ft 2 in Weight 239 lb 8 oz BMI 30.7 BP 130/72 Blood Pressure Location Lt brachial Position Sitting Pulse 46 L Pulse Source Pulse Oximeter Pulse Oximetry (%) 98 Oxygen Delivery Method Room Air Intake Visit Reasons: 3 month follow up Allergies celecoxib [Celebrex] Allergy (Unknown, Verified 01/06/24 14:42) worst knee pain and swelling clopidogrel [Plavix] Allergy (Unknown, Verified 01/06/24 14:42) rash azithromycin Adverse Reaction (Unknown, Verified 01/06/24 14:42) N/V Medication List - Last Reconciled 01/06/24 by Josué Saxena MD alprazolam 1 mg PO DAILY 30 days atorvastatin 40 mg PO DAILY 90 days carvedilol 12.5 mg PO BID 90 days cetirizine (Zyrtec) 10 mg PO DAILY PRN 90 days fluoxetine 40 mg (2 x 20 mg) PO DAILY 90 days hydrochlorothiazide 25 mg PO DAILY levothyroxine 50 mcg PO DAILY 90 days lisinopril 20 mg PO DAILY 90 days tadalafil 5 mg PO DAILY 90 days Tobacco use date assessed: 01/06/24 Fall risk assessment: No Falls in past year Last assessed Fall Risk: 01/06/24 Dental Screening Dental Screen Date: 01/06/24 Did you have a dental visit in the last 12 months?: No Did you have a dental problem in the last 6 months where you did not have access to dental care?: No Was dental information given to patient?: No HPI 3 month follow up HPI Details Patient is 68-year-old gentleman came in today for his 3 month follow-up appointment for medication refill. He has not done his labs yet, patient says that he can go right now he has not eaten anything all day . Patient is blind in left eye Continue to smoke once again instructed patient to stop smoking CALLUM, he is cutting down gradually he tells me Blood pressure is well controlled , he is taking lisinopril 20 mg, and carvedilol 12.5 mg b.i.d.. Patient says that he is no longer taking hydrochlorothiazide and it has been well Lipids are controlled with atorvastatin 40 mg Patient is taking fluoxetine 40 mg 2 tablets daily for anxiety control along with alprazolam 1 mg at night, script sent for 3 months, complying with the treatment plan no signs of abuse Nephropathy:? Kidney function stable will continue to monitor BMI elevated need to lose weight Follow-up 3 months? [facility] Medical History Hypertension, essential Elevated serum creatinine Other specified hypothyroidism Anxiety, generalized Lipid disorder Surgical History History of lumbar discectomy History of angioplasty Family History Father Alzheimer's disease Mother Respiratory failure Tuberculosis Maternal Grandfather No problems noted. Maternal Grandmother Stroke Paternal Grandfather No problems noted. Paternal Grandmother Parkinson disease Brother No problems noted. Brother No problems noted. Brother No problems noted. Brother No problems noted. Daughter No problems noted. Social History Housing: House Patient Tobacco Use Status: Current everyday Tobacco user Tobacco use type: Cigarette Cigarette Packs Per Day: 1 Years Smoked: 50 plus e-Cigarette/Vaping Use: Never Used service: No Current occupational status: retired and disabled Cognitive needs: No Hearing needs: No Vision needs: No Questionnaire Thrive Questionnaire Date Thrive assessed: 06/26/21 AUDIT C Alcohol Use Questionnaire (AUDIT-C) 1. How often do you have a drink containing alcohol?: Never 3. How often do you have six or more drinks on one occasion?: Never Total Score: 0 Score Reviewed/Action Taken: Yes Review of Systems Const Denies chills and Denies fever(s) ENT Denies epistaxis and Denies nasal discharge Card Denies chest pain Resp Denies chest congestion, Denies cough and Denies hemoptysis GI Denies diarrhea and Denies nausea Skin/Breast Denies rash Neuro Reports no additional complaints Psych Reports no additional complaints Endo Reports no additional complaints Physical exam (Primary Care) Vital Signs: Last Vital Signs Pulse 46 L 01/06/24 14:41 BP 130/72 01/06/24 14:41 Pulse Ox 98 01/06/24 14:41 Oxygen Delivery Method Room Air 01/06/24 14:41 BMI result Body Mass Index 30.7 Tobacco/Smoking Status: Tobacco use Status Tobacco use date assessed 01/06/24 01/06/24 14:42 Patient Tobacco Use Status Current everyday Tobacco 01/06/24 14:42 Tobacco use type Cigarette 01/06/24 14:42 e-Cigarette/Vaping Use Never Used 01/06/24 14:42 Thrive Assessment: Date of Thrive Assessment Date Thrive assessed 06/26/21 01/06/24 14:42 Const General: cooperative, comfortable and no acute distress Orientation/consciousness: patient oriented x3 HENMT Head: Yes normocephalic Eyes General: appearance normal, both eyes and all related structures Neck Neck: Yes supple Resp Effort & Inspection: normal respiratory effort, no cough and no stridor Cardio Rhythm: regular rhythm Heart sounds: S1 normal heart sound present and S2 normal heart sound present Skin General skin exam: turgor normal Neuro General: patient oriented x3, tone normal and moves all extremities Extrem Right lower extremity: no edema Left lower extremity: no edema Assessment and Plan Assessment & Plan (1) Anxiety, generalized: Code(s): F41.1 - Generalized anxiety disorder (2) Other specified hypothyroidism: Code(s): E03.8 - Other specified hypothyroidism (3) Hypertension, essential: Code(s): I10 - Essential (primary) hypertension (4) Nephropathy: Code(s): N28.9 - Disorder of kidney and ureter, unspecified (5) Lipid disorder: Code(s): E78.9 - Disorder of lipoprotein metabolism, unspecified (6) Tobacco use disorder: Code(s): F17.200 - Nicotine dependence, unspecified, uncomplicated (7) Blind left eye: Code(s): H54.40 - Blindness, one eye, unspecified eye Qualifiers: Right eye visual impairment category: right - unspecified low vision Qualified Code(s): H54.10 - Blindness, one eye, low vision other eye, unspecified eyes (8) Difficulty sleeping: Code(s): G47.9 - Sleep disorder, unspecified (9) Pre-diabetes: Code(s): R73.03 - Prediabetes Plan ?Patient is 68-year-old gentleman came in today for his 3 month follow-up appointment for medication refill. He has not done his labs yet, patient says that he can go right now he has not eaten anything all day . Patient is blind in left eye Continue to smoke once again instructed patient to stop smoking CALLUM, he is cutting down gradually he tells me Blood pressure is well controlled , he is taking lisinopril 20 mg, and carvedilol 12.5 mg b.i.d.. Patient says that he is no longer taking hydrochlorothiazide and it has been well Lipids are controlled with atorvastatin 40 mg Patient is taking fluoxetine 40 mg 2 tablets daily for anxiety control along with alprazolam 1 mg at night, script sent for 3 months, complying with the treatment plan no signs of abuse Nephropathy:? Kidney function stable will continue to monitor BMI elevated need to lose weight Follow-up 3 months? Medications: Refilled alprazolam 1 mg PO DAILY 30 days 30 tabs 3RF F41.1 - Generalized anxiety disorder atorvastatin 40 mg PO DAILY 90 days 90 tabs 1RF E78.9 - Disorder of lipoprotein metabolism, unspecified fluoxetine 40 mg (2 x 20 mg) PO DAILY 90 days 180 caps 3RF tadalafil 5 mg PO DAILY 90 days 90 tabs 1RF carvedilol must administer with a meal/food 12.5 mg PO BID 90 days 180 tabs 1RF cetirizine (Zyrtec) 10 mg PO DAILY 90 days PRN 90 caps 1RF allergy symptoms levothyroxine 50 mcg PO DAILY 90 days 90 tabs 1RF E03.8 - Other specified hypothyroidism lisinopril 20 mg PO DAILY 90 days 90 tabs 1RF I10 - Essential (primary) hypertension Discontinued hydrochlorothiazide Discontinued Reason: No Longer Medically Relevant 25 mg PO DAILY 90 tabs 1RF Coding Level of Care Code Est Pt Level 4 (35780) Diagnoses Anxiety, generalized F41.1 Other specified hypothyroidism E03.8 Hypertension, essential I10 Nephropathy N28.9 Lipid disorder E78.9 Tobacco use disorder F17.200 Blindness of left eye with low vision in contralateral eye H54.10 Right eye visual impairment category: right - unspecified low vision Difficulty sleeping G47.9 Pre-diabetes R73.03
== END 2024-01-06 16:18 | disposition home or self-care (01) ==
PROVIDERS: PCP Internal Medicine; Visit Provider Internal Medicine
DX: F41.1 Generalized anxiety disorder (principal); E03.8 Other specified hypothyroidism; I10 Essential (primary) hypertension; N28.9 Disorder of kidney and ureter, unspecified; E78.9 Disorder of lipoprotein metabolism, unspecified; F17.200 Nicotine dependence, unspecified, uncomplicated; H54.10 Blindness, one eye, low vision other eye, unspecified eyes; G47.9 Sleep disorder, unspecified; R73.03 Prediabetes
CPT/HCPCS: 99214

== ENCOUNTER 2024-04-05 12:47 | Outpatient (AMB) | payer MEDICARE, SELFPAY ==
--- NOTE | 2024-04-05 12:48 | A.OFFPC_ITS ---
Vital Signs 04/05/24 12:51 Weight 238 lb BP 130/82 Blood Pressure Location Lt brachial Position Sitting Pulse 60 Pulse Source Pulse Oximeter Pulse Oximetry (%) 99 Oxygen Delivery Method Room Air Intake Visit Reasons: 3 month F/u~ Allergies celecoxib [Celebrex] Allergy (Unknown, Verified 04/05/24 12:52) worst knee pain and swelling clopidogrel [Plavix] Allergy (Unknown, Verified 04/05/24 12:52) rash azithromycin Adverse Reaction (Unknown, Verified 04/05/24 12:52) N/V Medication List - Last Reconciled 04/05/24 by Josué Saxena MD alprazolam 1 mg PO DAILY 30 days atorvastatin 40 mg PO DAILY 90 days carvedilol 12.5 mg PO BID 90 days cetirizine (Zyrtec) 10 mg PO DAILY PRN 90 days fluoxetine 40 mg (2 x 20 mg) PO DAILY 90 days levothyroxine 50 mcg PO DAILY 90 days lisinopril 20 mg PO DAILY 90 days tadalafil 5 mg PO DAILY 90 days Tobacco use date assessed: 01/06/24 Dental Screening Dental Screen Date: 01/06/24 HPI 3 month F/u~ HPI Details ?Patient is 69-year-old gentleman came in today for his 3 month follow- up appointment for medication refill. Labs are still not done, patient says that he is fasting today and will have them done today. He offers no complaints, other than difficulty hearing Patient says that his is complaining On examination I see that he has cerumen impacted especially in the left ear I have sent Debrox ear drops, patient is to use that a week before his next appointment in June so we can get his ears flushed . Patient is blind in left eye Continue to smoke, instructed patient to stop smoking and if he needs any assistance he is to let me know Blood pressure is well controlled , he is taking lisinopril 20 mg, and carvedilol 12.5 mg b.i.d.. Patient says that he is no longer taking hydrochlorothiazide and it has been well Lipids are controlled with atorvastatin 40 mg Patient is taking fluoxetine 40 mg 2 tablets daily for anxiety control along with alprazolam 1 mg at night, script sent for 3 months, complying with the treatment plan no signs of abuse Nephropathy:? Kidney function stable will continue to monitor BMI elevated need to lose weight Follow-up 3 months? [facility] Medical History Hypertension, essential Elevated serum creatinine Other specified hypothyroidism Anxiety, generalized Lipid disorder Surgical History History of lumbar discectomy History of angioplasty Family History Father Alzheimer's disease Mother Respiratory failure Tuberculosis Maternal Grandfather No problems noted. Maternal Grandmother Stroke Paternal Grandfather No problems noted. Paternal Grandmother Parkinson disease Brother No problems noted. Brother No problems noted. Brother No problems noted. Brother No problems noted. Daughter No problems noted. Social History Housing: House Patient Tobacco Use Status: Current everyday Tobacco user Tobacco use type: Cigarette Cigarette Packs Per Day: 1 Years Smoked: 50 plus Packs Per Year: 0 e-Cigarette/Vaping Use: Never Used service: No Current occupational status: retired and disabled Cognitive needs: No Hearing needs: No Vision needs: No Questionnaire PHQ-9 Over the last 2 weeks, how often have you been bothered by any of the following problems? 34502 - PHQ-9 Billing: Patient declined-do not bill Source: Developed by Drs. Peewee Pate, Christiane Glynn, Severiano Retana and colleagues, with an educational erica from [employer]. Thrive Questionnaire Date Thrive assessed: 04/05/24 What is your living situation today?: I choose not to answer this question Within the past 12 months, did the food you bought not last and you didn't have the money to get more?: I choose not to answer this question Within the past 12 months, did you worry whether your food would run out before you got money to buy more?: I choose not to answer this question Do you have trouble paying for medicines?: I choose not to answer this question Do you have trouble getting transportation to medical appointments?: I choose not to answer this question Do you have trouble paying your heating and electricity bill?: I choose not to answer this question Do you have trouble taking care of your child, family member or friend?: I choose not to answer this question Do you have trouble with day-to-day activities such as bathing, preparing meals, shopping, managing finances, etc.?: I choose not to answer this question Are you currently unemployed and looking for a job?: I choose not to answer this question Are you interested in more education?: I choose not to answer this question Currently or been in a relationship where the following occur: I choose not to answer this question THRIVE Score: 0 MELLISA-7 AMB Questionnaire MELLISA-7 Date MELLISA - 7 assessed: 04/05/24 Source: Developed by Drs. Peewee Pate, Christiane Glynn, Severiano Retana and colleagues, with an educational erica from [employer]. MELLISA-7 Assessment Billing MELLISA-7 Assessment Tool: pt declined-do not bill Review of Systems Const Denies chills and Denies fever(s) ENT Denies epistaxis and Denies nasal discharge Card Denies chest pain Resp Denies chest congestion, Denies cough and Denies hemoptysis GI Denies diarrhea and Denies nausea Skin/Breast Denies rash Neuro Reports no additional complaints Psych Reports no additional complaints Endo Reports no additional complaints Physical exam (Primary Care) Vital Signs: Last Vital Signs Pulse 60 04/05/24 12:51 BP 130/82 04/05/24 12:51 Pulse Ox 99 04/05/24 12:51 Oxygen Delivery Method Room Air 04/05/24 12:51 Tobacco/Smoking Status: Tobacco use Status Tobacco use date assessed 01/06/24 04/05/24 12:56 Patient Tobacco Use Status Current everyday Tobacco 04/05/24 12:56 Tobacco use type Cigarette 04/05/24 12:56 e-Cigarette/Vaping Use Never Used 04/05/24 12:56 Thrive Assessment: Date of Thrive Assessment Date Thrive assessed 04/05/24 04/05/24 12:56 Currently or been in a relationship where the following occur: I choose not to answer this question Const General: cooperative, comfortable and no acute distress Orientation/consciousness: patient oriented x3 HENMT Head: Yes normocephalic Neck Neck: Yes supple Resp Effort & Inspection: normal respiratory effort, no cough and no stridor Cardio Rhythm: regular rhythm Heart sounds: S1 normal heart sound present and S2 normal heart sound present Skin General skin exam: turgor normal Neuro General: patient oriented x3, tone normal and moves all extremities Extrem Right lower extremity: no edema Left lower extremity: no edema Assessment and Plan Assessment & Plan (1) Hypertension, essential: Code(s): I10 - Essential (primary) hypertension (2) Lipid disorder: Code(s): E78.9 - Disorder of lipoprotein metabolism, unspecified (3) Anxiety, generalized: Code(s): F41.1 - Generalized anxiety disorder (4) Other specified hypothyroidism: Code(s): E03.8 - Other specified hypothyroidism (5) Nephropathy: Code(s): N28.9 - Disorder of kidney and ureter, unspecified (6) Tobacco use disorder: Code(s): F17.200 - Nicotine dependence, unspecified, uncomplicated (7) Difficulty sleeping: Code(s): G47.9 - Sleep disorder, unspecified (8) Pre-diabetes: Code(s): R73.03 - Prediabetes (9) Blind left eye: Code(s): H54.40 - Blindness, one eye, unspecified eye Qualifiers: Right eye visual impairment category: right - unspecified low vision Qualified Code(s): H54.10 - Blindness, one eye, low vision other eye, unspec ified eyes Plan ?Patient is 69-year-old gentleman came in today for his 3 month follow-up appointment for medication refill. Labs are still not done, patient says that he is fasting today and will have them done today. He offers no complaints, other than difficulty hearing Patient says that his is complaining On examination I see that he has cerumen impacted especially in the left ear I have sent Debrox ear drops, patient is to use that a week before his next appointment in June so we can get his ears flushed . Patient is blind in left eye Continue to smoke, instructed patient to stop smoking and if he needs any assistance he is to let me know Blood pressure is well controlled , he is taking lisinopril 20 mg, and carvedilol 12.5 mg b.i.d.. Patient says that he is no longer taking hydrochlorothiazide and it has been well Lipids are controlled with atorvastatin 40 mg Patient is taking fluoxetine 40 mg 2 tablets daily for anxiety control along with alprazolam 1 mg at night, script sent for 3 months, complying with the treatment plan no signs of abuse Nephropathy:? Kidney function stable will continue to monitor BMI elevated need to lose weight Follow-up 3 months? Medications: New carbamide peroxide 6.5% (Debrox) 5 drps otic (ears) DAILY 4 days 15 mL 0RF Ear wax Refilled atorvastatin 40 mg PO DAILY 90 days 90 tabs 1RF E78.9 - Disorder of lipoprotein metabolism, unspecified levothyroxine 50 mcg PO DAILY 90 days 90 tabs 1RF E03.8 - Other specified hypothyroidism lisinopril 20 mg PO DAILY 90 days 90 tabs 1RF I10 - Essential (primary) hypertension alprazolam 1 mg PO DAILY 30 days 30 tabs 3RF F41.1 - Generalized anxiety disorder carvedilol must administer with a meal/food 12.5 mg PO BID 90 days 180 tabs 1RF cetirizine (Zyrtec) 10 mg PO DAILY 90 days PRN 90 caps 1RF allergy symptoms fluoxetine 40 mg (2 x 20 mg) PO DAILY 90 days 180 caps 3RF Coding Level of Care Code Est Pt Level 4 (66317) Diagnoses Hypertension, essential I10 Lipid disorder E78.9 Anxiety, generalized F41.1 Other specified hypothyroidism E03.8 Nephropathy N28.9 Tobacco use disorder F17.200 Difficulty sleeping G47.9 Pre-diabetes R73.03 Blindness of left eye with low vision in contralateral eye H54.10 Right eye visual impairment category: right - unspecified low vision
[2024-04-05 12:51] VITALS: BP 130/82; PULSE 60; O2SAT 99
== END 2024-04-05 15:42 | disposition home or self-care (01) ==
PROVIDERS: PCP Internal Medicine; Visit Provider Internal Medicine
DX: I10 Essential (primary) hypertension (principal); E78.9 Disorder of lipoprotein metabolism, unspecified; F41.1 Generalized anxiety disorder; E03.8 Other specified hypothyroidism; N28.9 Disorder of kidney and ureter, unspecified; F17.200 Nicotine dependence, unspecified, uncomplicated; G47.9 Sleep disorder, unspecified; R73.03 Prediabetes; H54.10 Blindness, one eye, low vision other eye, unspecified eyes
CPT/HCPCS: 99214

== ENCOUNTER 2024-07-04 14:54 | Outpatient (REF) | payer MEDICARE, SELFPAY ==
[2024-07-04 16:17] LABS: MANUAL DIFF FLAG NO
[2024-07-04 16:24] LABS: Basophils Percent Auto 0.2 % (0-2); Eosinophils Absolute Auto 0.1 X10*3/uL (0.0-0.4); Eosinophils Percent Auto 1.1 % (0-4); Hemoglobin 15.1 g/dl (14.0-18.0); Imm Gran Abs Auto 0.03 X10*3/uL (0.00-0.03); Imm Gran Pct Auto 0.5 % (0.0-0.4); Lymphocytes Absolute Auto 1.3 X10*3/uL (1.2-4.9); Lymphocytes Percent Auto 19.2 % (20-40); Mean Corpuscular HGB Conc 34.3 g/dl (31.0-36.0); Mean Corpuscular Hemoglobin 36.1 pg (27.0-33.0); Mean Corpuscular Volume 105.3 fL (80.0-98.0); Mean Platelet Volume 11.3 fL (9.4-12.4); Monocytes Absolute Auto 0.6 X10*3/uL (0.1-1.2); Monocytes Percent Auto 9.5 % (2-11); Neutrophils Absolute Auto 4.6 x10*3/uL (2.0-8.3); Neutrophils Percent Auto 69.5 % (45-73); Platelet Count 143 X10*3/uL (160-400); Red Blood Count 4.18 X10*6/uL (4.60-5.80); Red Cell Distribution Width 12.6 % (11.0-16.0); White Blood Count 6.6 X10*3/uL (4.8-10.8)
[2024-07-04 16:58] LABS: Alanine Aminotransferase 12 U/L (0-40); Alkaline Phosphatase 80 U/L (39-117); Anion Gap 15 (12-20); Aspartate Amino Transferase 18 U/L (5-37); Bilirubin Total 0.7 mg/dL (0.0-1.0); Blood Urea Nitrogen 12 mg/dL (9-16); Calcium 9.7 mg/dL (8.4-10.2); Carbon Dioxide 26 mmol/L (22-29); Chloride 102 mmol/L (96-108); Cholesterol 113 mg/dL (<200); Estimated Glomerular Filt Rate > 60; Glucose Fasting 116 mg/dL (60-99); HDL Cholesterol 34 mg/dL (>40); LDL Cholesterol Calculated 56 mg/dL (<100); Potassium 5.5 mmol/L (3.3-5.1); Sodium 137 mmol/L (135-145); Triglycerides 116 mg/dL (<150)
[2024-07-04 16:59] LABS: Estimated Average Glucose 105 mg/dL; Hemoglobin A1c % 5.3 % (<6.0)
[2024-07-04 17:04] LABS: TSH reflex Free T4 3.46 uIU/mL (0.32-4.0)
== END 2024-07-04 14:55 | disposition home or self-care (01) ==
LOC: HO.HMGCLDS 14:54
PROVIDERS: PCP Internal Medicine; Visit Provider Internal Medicine
DX: E78.9 Disorder of lipoprotein metabolism, unspecified (principal); F41.1 Generalized anxiety disorder; E03.8 Other specified hypothyroidism; I10 Essential (primary) hypertension; N28.9 Disorder of kidney and ureter, unspecified; F17.200 Nicotine dependence, unspecified, uncomplicated; G47.9 Sleep disorder, unspecified; R73.03 Prediabetes
CPT/HCPCS: 36415; 80053; 80061; 83036; 84443; 85025

== ENCOUNTER 2024-07-06 09:09 | Outpatient (AMB) | payer MEDICARE, SELFPAY ==
[2024-07-06 09:14] VITALS: BP 132/74; PULSE 65; O2SAT 97; BMI 29.8
--- NOTE | 2024-07-06 09:14 | MHC.PC.OV ---
Vital Signs 07/06/24 09:14 Height 6 ft 2 in Weight 232 lb BMI 29.8 BP 132/74 Blood Pressure Location Lt brachial Position Sitting Pulse 65 Pulse Source Pulse Oximeter Pulse Oximetry (%) 97 Oxygen Delivery Method Room Air Intake Visit Reasons: Annual PE Allergies celecoxib [Celebrex] Allergy (Unknown, Verified 07/06/24 09:16) worst knee pain and swelling clopidogrel [Plavix] Allergy (Unknown, Verified 07/06/24 09:16) rash azithromycin Adverse Reaction (Unknown, Verified 07/06/24 09:16) N/V Medication List - Last Reconciled 07/06/24 by Josué Saxena MD alprazolam 1 mg PO DAILY 30 days atorvastatin 40 mg PO DAILY 90 days carbamide peroxide 6.5% (Debrox) 5 drps otic (ears) DAILY 4 days carvedilol 12.5 mg PO BID 90 days cetirizine (Zyrtec) 10 mg PO DAILY PRN 90 days fluoxetine 40 mg (2 x 20 mg) PO DAILY 90 days levothyroxine 50 mcg PO DAILY 90 days lisinopril 20 mg PO DAILY 90 days sodium polystyrene sulfonate 15 grams (60 mL) PO DAILY 3 days tadalafil 5 mg PO DAILY 90 days Tobacco use date assessed: 07/06/24 Fall risk assessment: No Falls in past year Last assessed Fall Risk: 07/06/24 Dental Screening Dental Screen Date: 07/06/24 Did you have a dental visit in the last 12 months?: No Did you have a dental problem in the last 6 months where you did not have access to dental care?: No Was dental information given to patient?: No HPI Annual PE HPI Details Patient is a 69-year-old male came for physical exam was recently diagnosed with stage IV breast cancer Patient is emotionally struggling it and is under stress Continue to smoke a little less than pack a day, patient says that he will continue to cut down in spite of stress He had labs done 2 days ago his potassium came back at 5.5 I did send in medication to reduce it but patient has not picked up I will be repeating the labs Declined to do colonoscopy All medications refills sent [facility] [place] Medical History Hypertension, essential Elevated serum creatinine Other specified hypothyroidism Anxiety, generalized Lipid disorder Surgical History History of lumbar discectomy History of angioplasty Family History Father Alzheimer's disease Mother Respiratory failure Tuberculosis Maternal Grandfather No problems noted. Maternal Grandmother Stroke Paternal Grandfather No problems noted. Paternal Grandmother Parkinson disease Brother No problems noted. Brother No problems noted. Brother No problems noted. Brother No problems noted. Daughter No problems noted. Social History Housing: House Patient Tobacco Use Status: Current everyday Tobacco user Tobacco use type: Cigarette Cigarette Packs Per Day: 1 Years Smoked: 50 plus e-Cigarette/Vaping Use: Never Used service: No Current occupational status: retired and disabled Cognitive needs: No Hearing needs: No Vision needs: No Questionnaire Thrive Questionnaire Date Thrive assessed: 07/06/24 I am a: Parent/Caregiver What is your living situation today?: I have a steady place to live Within the past 12 months, did the food you bought not last and you didn't have the money to get more?: Never true Within the past 12 months, did you worry whether your food would run out before you got money to buy more?: Never true Do you have trouble paying for medicines?: No Do you have trouble getting transportation to medical appointments?: No Do you have trouble paying your heating and electricity bill?: No Do you have trouble taking care of your child, family member or friend?: No Do you have trouble with day-to-day activities such as bathing, preparing meals, shopping, managing finances, etc.?: No Are you currently unemployed and looking for a job?: No Are you interested in more education?: No Please select the resources that you would like help with: None Currently or been in a relationship where the following occur: I choose not to answer THRIVE Score: 0 AUDIT C Alcohol Use Questionnaire (AUDIT-C) 1. How often do you have a drink containing alcohol?: Never 3. How often do you have six or more drinks on one occasion?: Never Total Score: 0 Score Reviewed/Action Taken: Yes MELLISA-7 AMB Questionnaire MELLISA-7 Date MELLISA - 7 assessed: 04/05/24 Feeling nervous, anxious, or on edge: 0 = Not at all Not being able to stop or control worryin = Not at all Worrying too much about different things: 0 = Not at all Trouble relaxin = Several days Being so restless that it is hard to sit still: 0 = Not at all Becoming easily annoyed or irritable: 0 = Not at all Feeling afraid as if something awful might happen: 0 = Not at all Total MELLISA-7 score (0-4 normal; 5-9 mild; 10-14 moderate; 15-21 severe): 1 Source: Developed by Drs. Peewee Pate, Christiane Glynn, Severiano Retana and colleagues, with an educational erica from [employer]. MELLISA-7 Assessment Billing MELLISA-7 Assessment Tool: MELLISA-7 Assessment 42966 Review of Systems Const Denies chills, Denies fever(s) and Denies headache(s) Eyes Denies blurry vision ENT Denies headache(s), Denies nasal discharge, Denies nasal obstruction, Denies odynophagia and Denies sinus pain Card Denies chest pain at rest and Denies chest pain with activity Resp Denies cough and Denies hemoptysis GI Denies diarrhea, Denies odynophagia, Denies vomiting and Denies hematemesis Reports as per HPI Musc Denies abnormal gait Skin/Breast Reports as per HPI Neuro Denies Neuro-related abnormal movements, Denies Abnormal speech present, Denies abnormal gait and Denies headache(s) Psych Denies mood swings and Denies paranoia Endo Reports as per HPI Manjinder/Lymph Reports as per HPI Aller/Immun Reports as per HPI Physical exam (Primary Care) Vital Signs: Last Vital Signs Pulse 65 07/06/24 09:14 BP 132/74 07/06/24 09:14 Pulse Ox 97 07/06/24 09:14 Oxygen Delivery Method Room Air 07/06/24 09:14 BMI result Body Mass Index 29.8 Tobacco/Smoking Status: Tobacco use Status Tobacco use date assessed 07/06/24 07/06/24 09:19 Patient Tobacco Use Status Current everyday Tobacco 07/06/24 09:19 Tobacco use type Cigarette 07/06/24 09:19 e-Cigarette/Vaping Use Never Used 08/14/24 09:19 Thrive Assessment: Date of Thrive Assessment Date Thrive assessed 07/06/24 07/06/24 09:19 Currently or been in a relationship where the following occur: I choose not to answer Const General: cooperative, comfortable and no acute distress Orientation/consciousness: patient oriented x3 HENMT Head: Yes normocephalic and Yes atraumatic Eyes General: appearance normal, both eyes and all related structures Pupils: Equal, round and reactive pupils present EOM: EOMs intact bilaterally Neck Neck: Yes supple and No lymphadenopathy Thyroid: Thyroid normal Lymphatic: no lymphadenopathy noted Resp Effort & Inspection: normal respiratory effort and able to speak in complete sentences Auscultation: clear to auscultation bilaterally Cardio Heart sounds: S1 normal heart sound present and S2 normal heart sound present GI Palpation (GI): Soft to palpation and nontender Auscultation: normal bowel sounds General: Yes no CVA tenderness Back/Spine/Pelvis Back: no CVA tenderness Skin General skin exam: elasticity normal and turgor normal Neuro General: patient oriented x3 and gait normal Cranial nerves: Yes Equal, round and reactive pupils present Speech: No Abnormal speech present Coordination: tandem gait normal and Romberg test negative Extrem General: Yes normal exam except as noted and No edema Assessment and Plan Assessment & Plan (1) Encounter for general adult medical examination with abnormal findings: Code(s): Z00.01 - Encounter for general adult medical examination with abnormal findings (2) Stress: Code(s): F43.9 - Reaction to severe stress, unspecified (3) Domestic problems: Code(s): Z65.8 - Other specified problems related to psychosocial circumstances (4) Serum potassium elevated: Code(s): E87.5 - Hyperkalemia (5) Hypertension, essential: Code(s): I10 - Essential (primary) hypertension (6) Lipid disorder: Code(s): E78.9 - Disorder of lipoprotein metabolism, unspecified (7) Anxiety, generalized: Code(s): F41.1 - Generalized anxiety disorder (8) Other specified hypothyroidism: Code(s): E03.8 - Other specified hypothyroidism (9) Nephropathy: Code(s): N28.9 - Disorder of kidney and ureter, unspecified (10) Tobacco use disorder: Code(s): F17.200 - Nicotine dependence, unspecified, uncomplicated (11) Difficulty sleeping: Code(s): G47.9 - Sleep disorder, unspecified (12) Pre-diabetes: Code(s): R73.03 - Prediabetes (13) Blind left eye: Code(s): H54.40 - Blindness, one eye, unspecified eye Qualifiers: Right eye visual impairment category: right - unspecified low vision Qualified Code(s): H54.10 - Blindness, one eye, low vision other eye, unspecified eyes Plan Patient is a 69-year-old male came for physical exam was recently diagnosed with stage IV breast cancer Patient is emotionally struggling it and is under stress Continue to smoke a little less than pack a day, patient says that he will continue to cut down in spite of stress He had labs done 2 days ago his potassium came back at 5.5 I did send in medication to reduce it but patient has not picked up I will be repeating the labs Declined to do colonoscopy All medications refills sent Orders: Orders Basic Metabolic Panel Today E87.5 - Hyperkalemia Medications: Refilled atorvastatin 40 mg PO DAILY 90 tabs 1RF 90 days E78.9 - Disorder of lipoprotein metabolism, unspecified carvedilol must administer with a meal/food 12.5 mg PO BID 180 tabs 1RF 90 days levothyroxine 50 mcg PO DAILY 90 tabs 1RF 90 days E03.8 - Other specified hypothyroidism lisinopril 20 mg PO DAILY 90 tabs 1RF 90 days I10 - Essential (primary) hypertension alprazolam 1 mg PO DAILY 30 tabs 3RF 30 days F41.1 - Generalized anxiety disorder cetirizine (Zyrtec) 10 mg PO DAILY PRN 90 caps 1RF allergy symptoms 90 days fluoxetine 40 mg (2 x 20 mg) PO DAILY 180 caps 3RF 90 days tadalafil 5 mg PO DAILY 90 tabs 0RF 90 days Coding Level of Care Code Est Pt Level 4 (34434) Est Pt Prev Care >65y(41204) Diagnoses Encounter for general adult medical examination with abnormal findings Z00.01 Stress F43.9 Domestic problems Z65.8 Serum potassium elevated E87.5 Hypertension, essential I10 Lipid disorder E78.9 Anxiety, generalized F41.1 Other specified hypothyroidism E03.8 Nephropathy N28.9 Tobacco use disorder F17.200 Difficulty sleeping G47.9 Pre-diabetes R73.03 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
== END 2024-07-06 09:35 | disposition home or self-care (01) ==
PROVIDERS: PCP Internal Medicine; Visit Provider Internal Medicine
DX: Z00.00 Encounter for general adult medical examination without abnormal findings (principal); F43.9 Reaction to severe stress, unspecified; Z65.8 Other specified problems related to psychosocial circumstances; E87.5 Hyperkalemia; I10 Essential (primary) hypertension; E78.9 Disorder of lipoprotein metabolism, unspecified; F41.1 Generalized anxiety disorder; E03.8 Other specified hypothyroidism; N28.9 Disorder of kidney and ureter, unspecified; F17.200 Nicotine dependence, unspecified, uncomplicated; G47.9 Sleep disorder, unspecified; R73.03 Prediabetes
CPT/HCPCS: 99214; 99397

== ENCOUNTER 2024-07-06 09:36 | Outpatient (REF) | payer MEDICARE, SELFPAY ==
[2024-07-06 11:25] LABS: Anion Gap 11 (12-20); Blood Urea Nitrogen 18 mg/dL (9-16); Calcium 9.3 mg/dL (8.4-10.2); Carbon Dioxide 29 mmol/L (22-29); Chloride 104 mmol/L (96-108); Estimated Glomerular Filt Rate > 60; Glucose Random 104 mg/dL (60-115); Potassium 4.9 mmol/L (3.3-5.1); Sodium 139 mmol/L (135-145)
== END 2024-07-06 09:37 | disposition home or self-care (01) ==
LOC: HO.HMGCLDS 09:36
PROVIDERS: PCP Internal Medicine; Visit Provider Internal Medicine
DX: E87.5 Hyperkalemia (principal)
CPT/HCPCS: 36415; 80048

== ENCOUNTER 2024-10-19 13:17 | Outpatient (AMB) | payer MEDICARE, SELFPAY ==
[2024-10-19 13:27] VITALS: BP 126/72; PULSE 66; O2SAT 97; BMI 28.9
--- NOTE | 2024-10-19 13:27 | A.OFFPC_ITS ---
Vital Signs 10/19/24 13:27 Height 6 ft 2 in Weight 225 lb 4 oz BMI 28.9 BP 126/72 Blood Pressure Location Rt brachial Position Sitting Pulse 66 Pulse Source Pulse Oximeter Pulse Oximetry (%) 97 Oxygen Delivery Method Room Air Intake Visit Reasons: 3 months Allergies celecoxib [Celebrex] Allergy (Unknown, Verified 10/19/24 13:27) worst knee pain and swelling clopidogrel [Plavix] Allergy (Unknown, Verified 10/19/24 13:27) rash azithromycin Adverse Reaction (Unknown, Verified 10/19/24 13:27) N/V Medication List - Last Reconciled 10/19/24 by Josué Saxena MD alprazolam 1 mg PO DAILY 30 days atorvastatin 40 mg PO DAILY 90 days carvedilol 12.5 mg PO BID 90 days cetirizine (Zyrtec) 10 mg PO DAILY PRN 90 days fluoxetine 40 mg (2 x 20 mg) PO DAILY 90 days levothyroxine 50 mcg PO DAILY 90 days lisinopril 20 mg PO DAILY 90 days sodium polystyrene sulfonate 15 grams (60 mL) PO DAILY 3 days tadalafil 5 mg PO DAILY 90 days Tobacco use date assessed: 10/19/24 Fall risk assessment: No Falls in past year Last assessed Fall Risk: 10/19/24 Dental Screening Dental Screen Date: 10/19/24 Did you have a dental visit in the last 12 months?: Yes Did you have a dental problem in the last 6 months where you did not have access to dental care?: No Was dental information given to patient?: Patient has dentist HPI 3 months HPI Details Chief Complaint Patient presents for regular follow-up and medication refill. Assessment and Plan 69-year-old male with a history of lipid disorder, anxiety, hypothyroidism, hypertension, erectile dysfunction, smoking and recent emotional trauma presenting for a routine follow-up appointment. The patient reports he is cutting down on smoking. His recent laboratory tests conducted in June indicate stable kidney function, no anemia, and well-controlled blood pressure. The patient missed his last appointment and requires refill of all prescribed medications. He is managing emotional distress related to his spouse's recent hospitalization due to cancer diagnosis and passing, he is engaged with a hospice program and receiving therapy support. 1. Other symptoms and signs involving em otional state R45.89 The patient experiences emotional distress due to his spouse's recent passing, however, he is actively participating in therapy and hospice care arrangements. Continue existing emotional support systems; no additional interventions are i ntroduced during this meeting. 2. Medication Refill The patient requires refills for all prescribed medications, which were processed electronically. He will collect them shortly in the pharmacy. 3. History Of Smoking The patient reports reducing smoking. He is encouraged to continue smoking cessation efforts. No new medications are prescribed during this visit for smoking cessation; ongoing reduction in smoking is noted. Problem List - History of Smoking - Recent History of Emotional Trauma rel ated to Spouse's Health Issues -anxiety -lipid disorder -hypothyroidism -hypertension -erectile dysfunction Patient Instructions - Continue efforts to reduce smoking - Collect prescribed medications from [facility] - Follow up as scheduled in three months [facility] Medical History Hypertension, essential Elevated serum creatinine Other specified hypothyroidism Anxiety, generalized Lipid disorder Surgical History History of lumbar discectomy History of angioplasty Family History Father Alzheimer's disease Mother Respiratory failure Tuberculosis Maternal Grandfather No problems noted. Maternal Grandmother Stroke Paternal Grandfather No problems noted. Paternal Grandmother Parkinson disease Brother No problems noted. Brother No problems noted. Brother No problems noted. Brother No problems noted. Daughter No problems noted. Social History Housing: House Patient Tobacco Use Status: Current everyday Tobacco user Tobacco use type: Cigarette Cigarette Packs Per Day: 1 Years Smoked: 50 plus e-Cigarette/Vaping Use: Never Used service: No Current occupational status: retired and disabled Cognitive needs: No Hearing needs: No Vision needs: No Questionnaire PHQ-9 Over the last 2 weeks, how often have you been bothered by any of the following problems? 1. Little interest or pleasure in doing things: not at all 2. Feeling down, depressed, or hopeless: not at all 3. Trouble falling or staying asleep, or sleeping too much: not at all 4. Feeling tired or having little energy: not at all 5. Poor appetite or overeating: not at all 6. Feeling bad about yourself - or that you are a failure or have let yourself or your family down: not at all 7. Trouble concentrating on things, such as reading the newspaper or watching television: not at all 8. Moving or speaking so slowly that other people could have noticed. Or the opposite - being so fidgety or restless that you have been moving around a lot more than usual: not at all 9. Thoughts that you would be better off or of hurting yourself in some way: not at all Total score: 0 Depression Screening Interpretation: Negative Depression Screening Done: Yes 19305 - PHQ-9 Billing: Yes Source: Developed by Drs. Peewee Pate, Christiane Glynn, Severiano Retana and colleagues, with an educational erica from [employer]. Thrive Questionnaire Date Thrive assessed: 10/19/24 I am a: Parent/Caregiver What is your living situation today?: I have a steady place to live Within the past 12 months, did the food you bought not last and you didn't have the money to get more?: Never true Within the past 12 months, did you worry whether your food would run out before you got money to buy more?: Never true Do you have trouble paying for medicines?: No Do you have trouble getting transportation to medical appointments?: No Do you have trouble paying your heating and electricity bill?: No Do you have trouble taking care of your child, family member or friend?: No Do you have trouble with day-to-day activities such as bathing, preparing meals, shopping, managing finances, etc.?: No Are you currently unemployed and looking for a job?: No Are you interested in more education?: No Please select the resources that you would like help with: None Currently or been in a relationship where the following occur: I choose not to answer THRIVE Score: 0 AUDIT C Alcohol Use Questionnaire (AUDIT-C) 1. How often do you have a drink containing alcohol?: Never 3. How often do you have six or more drinks on one occasion?: Never Total Score: 0 Score Reviewed/Action Taken: Yes MELLISA-7 AMB Questionnaire MELLISA-7 Date MELLISA - 7 assessed: 04/05/24 Source: Developed by Drs. Peewee Pate, Severiano Dumas and colleagues, with an educational erica from [employer]. Review of Systems Const Denies chills and Denies fever(s) ENT Denies epistaxis and Denies nasal discharge Card Denies chest pain Resp Denies chest congestion, Denies cough and Denies hemoptysis GI Denies diarrhea and Denies nausea Skin/Breast Denies rash Neuro Reports no additional complaints Psych Reports no additional complaints Endo Reports no additional complaints Physical exam (Primary Care) Vital Signs: Last Vital Signs Pulse 66 10/19/24 13:27 BP 126/72 10/19/24 13:27 Pulse Ox 97 10/19/24 13:27 Oxygen Delivery Method Room Air 10/19/24 13:27 BMI result Body Mass Index 28.9 Tobacco/Smoking Status: Tobacco use Status Tobacco use date assessed 10/19/24 10/19/24 13:30 Patient Tobacco Use Status Current everyday Tobacco 10/19/24 13:30 Tobacco use type Cigarette 10/19/24 13:30 e-Cigarette/Vaping Use Never Used 10/19/24 13:30 PHQ-9: PHQ-9 Score PHQ-9: Total score 0 10/19/24 13:34 Depression Screening Interpretation: Negative Thrive Assessment: Date of Thrive Assessment Date Thrive assessed 10/19/24 10/19/24 13:34 Currently or been in a relationship where the following occur: I choose not to answer Const General: cooperative, comfortable and no acute distress Orientation/consciousness: patient oriented x3 HENMT Head: Yes normocephalic Eyes General: appearance normal, both eyes and all related structures Neck Neck: Yes supple Resp Effort & Inspection: normal respiratory effort, no cough and no stridor Cardio Rhythm: regular rhythm Heart sounds: S1 normal heart sound present and S2 normal heart sound present Skin General skin exam: turgor normal Neuro General: patient oriented x3, tone normal and moves all extremities Extrem Right lower extremity: no edema Left lower extremity: no edema Coding Level of Care Code Est Pt Level 4 (56886) Complex EM visit Add On G2211 Diagnoses Hypertension, essential I10 Other specified hypothyroidism E03.8 Anxiety, generalized F41.1 Lipid disorder E78.9 Tobacco use disorder F17.200 Difficulty attaining erection N52.9 Pre-diabetes R73.03 Grieving F43.21 Additional Codes PHQ-9 - 94095 - PHQ-9 Billing: Yes ([id number]) Assessment & Plan Assessment & Plan (1) Hypertension, essential: Code(s): I10 - Essential (primary) hypertension Category: Medical (2) Other specified hypothyroidism: Code(s): E03.8 - Other specified hypothyroidism Category: Medical (3) Anxiety, generalized: Code(s): F41.1 - Generalized anxiety disorder Category: Medical (4) Lipid disorder: Code(s): E78.9 - Disorder of lipoprotein metabolism, unspecified Category: Medical (5) Tobacco use disorder: Code(s): F17.200 - Nicotine dependence, unspecified, uncomplicated Category: Medical (6) Difficulty attaining erection: Code(s): N52.9 - Male erectile dysfunction, unspecified Category: Medical (7) Pre-diabetes: Code(s): R73.03 - Prediabetes Category: Medical (8) Grieving: Code(s): F43.21 - Adjustment disorder with depressed mood Category: Medical Plan Chief Complaint Patient presents for regular follow-up and medication refill. Assessment and Plan 69-year-old male with a history of lipid disorder, anxiety, hypothyroidism, hypertension, erectile dysfunction, smoking and recent emotional trauma presenting for a routine follow-up appointment. The patient reports he is cutting down on smoking. His recent laboratory tests conducted in June indicate stable kidney function, no anemia, and well-controlled blood pressure. The patient missed his last appointment and requires refill of all prescribed medications. He is managing emotional distress related to his spouse's recent hospitalization due to cancer diagnosis and passing, he is engaged with a hospice program and receiving therapy support. 1. Other symptoms and signs involving emotional state R45.89 The patient experiences emotional distress due to his spouse's recent passing, however, he is actively participating in therapy and hospice care arrangements. Continue existing emotional support systems; no additional interventions are introduced during this meeting. 2. Medication Refill The patient requires refills for all prescribed medications, which were processed electronically. He will collect them shortly in the pharmacy. 3. History Of Smoking The patient reports reducing smoking. He is encouraged to continue smoking cessation efforts. No new medications are prescribed during this visit for smoking cessation; ongoing reduction in smoking is noted. Problem List - History of Smoking - Recent History of Emotional Trauma related to Spouse's Health Issues -anxiety -lipid disorder -hypothyroidism -hypertension -erectile dysfunction Patient Instructions - Continue efforts to reduce smoking - Collect prescribed medications from the pharmacy - Follow up as scheduled in three months Medications: Refilled atorvastatin 40 mg PO DAILY 90 tabs 1RF 90 days E78.9 - Disorder of lipoprotein metabolism, unspecified carvedilol must administer with a meal/food 12.5 mg PO BID 180 tabs 1RF 90 days cetirizine (Zyrtec) 10 mg PO DAILY PRN 90 caps 1RF allergy symptoms 90 days fluoxetine 40 mg (2 x 20 mg) PO DAILY 180 caps 3RF 90 days alprazolam 1 mg PO DAILY 30 tabs 2RF 30 days F41.1 - Generalized anxiety disorder levothyroxine 50 mcg PO DAILY 90 tabs 1RF 90 days E03.8 - Other specified hypothyroidism lisinopril 20 mg PO DAILY 90 tabs 1RF 90 days I10 - Essential (primary) hypertension
== END 2024-10-19 14:23 | disposition home or self-care (01) ==
PROVIDERS: PCP Internal Medicine; Visit Provider Internal Medicine
DX: I10 Essential (primary) hypertension (principal); E03.8 Other specified hypothyroidism; F41.1 Generalized anxiety disorder; E78.9 Disorder of lipoprotein metabolism, unspecified; F17.200 Nicotine dependence, unspecified, uncomplicated; N52.9 Male erectile dysfunction, unspecified; R73.03 Prediabetes; F43.21 Adjustment disorder with depressed mood

== ENCOUNTER → 2024-10-19 13:17 | Outpatient (BNVA) | payer MEDICARE, SELFPAY | PROVIDERS: PCP Internal Medicine; Visit Provider Internal Medicine | DX: I10 Essential (primary) hypertension (principal); E03.8 Other specified hypothyroidism; F41.1 Generalized anxiety disorder; E78.9 Disorder of lipoprotein metabolism, unspecified; N52.9 Male erectile dysfunction, unspecified; R73.03 Prediabetes; F43.21 Adjustment disorder with depressed mood; F17.200 Nicotine dependence, unspecified, uncomplicated; Z71.6 Tobacco abuse counseling | CPT/HCPCS: 96127; 99212 ==

== ENCOUNTER 2025-03-16 08:52 | Outpatient (REF) | payer MEDICARE, SELFPAY ==
--- OUTSIDE RECORDS SUMMARY | 2025-03-16 09:25 | XMS_ITS | Clinical Summary ---
Author Organization [facility], Address [address] [place] [address] [place] [address] Phone Care Team Providers Care Funeral Director And Embalmer Name Role Phone Josué Saxena MD Primary Care Provider [phone] Medications ALPRAZolam (XANAX) 1 MG tablet Take 1 mg by mouth at bed time 02/21/2021 Active atorvastatin (LIPITOR) 40 MG tablet Take 40 mg by mouth 1 (one) time each day 01/28/2021 Active carvedilol (COREG) 12.5 MG tablet Take 12.5 mg by mouth 2 (two) times a day 01/01/2021 Active fenofibrate (TRICOR) 54 MG tablet Take 54 mg by mouth 1 (one) time each day 12/26/2020 Active FLUoxetine (PROzac) 20 MG capsule 02/09/2021 Active hydroCHLOROthiaz jada (HYDRODIURIL) 25 MG tablet Take 25 mg by mouth 1 (one) time each day 01/02/2021 Active lisinopril (PRINIVIL,ZESTRI L) 20 MG tablet Take 20 mg by mouth 1 (one) time each day 02/09/2021 Active Active Problems Problem Noted Date Diagnosed Date Serum creatinine above reference range Hypertension 03/13/2021 Social History Tobacco Use Types Packs/Day Years Used Date Smoking Tobacco: Unknown Sex and Gender Information Value Date Recorded Sex Assigned at Not on file Legal Sex Male 2:06 PM EST Gender Identity Not on file Sexual Orientation Not on file Plan of Treatment Health Maintenance Due Date Last Done Comments Colorectal Cancer Screening: Annual FOBT 2002 Colorectal Cancer Screening: Colonoscopy 2002 Colorectal Cancer Screening: Sigmoidoscopy 2002 Pneumococcal Vaccine: 50+ Ye ars (1 of 1 - PCV) 2003 Influenza Vaccine (Season Ended) 2025 Hepatitis B Vaccine Aged Out No longe r eligible based on patient's age to complete this topic Insurance Medicare Care Teams Funeral Director And Embalmer Relationship Specialty Start Date End Date Josué Saxena MD [address] [place] [address] PCP - General Internal Medicine 01/07/21
[2025-03-16 10:16] LABS: MANUAL DIFF FLAG NO
[2025-03-16 10:28] LABS: Estimated Average Glucose 108 mg/dL; Hemoglobin A1C 144.8813 umol/L; Hemoglobin A1c % 5.4 % (<6.0)
[2025-03-16 10:30] LABS: Basophils Percent Auto 0.2 % (0-2); Eosinophils Absolute Auto 0.1 X10*3/uL (0.0-0.4); Eosinophils Percent Auto 1.7 % (0-4); Hematocrit 45.1 % (42.0-52.0); Hemoglobin 15.1 g/dl (14.0-18.0); Imm Gran Abs Auto 0.03 X10*3/uL (0.00-0.03); Imm Gran Pct Auto 0.6 % (0.0-0.4); Lymphocytes Absolute Auto 1.9 X10*3/uL (1.2-4.9); Lymphocytes Percent Auto 35.5 % (20-40); Mean Corpuscular HGB Conc 33.5 g/dl (31.0-36.0); Mean Corpuscular Hemoglobin 35.1 pg (27.0-33.0); Mean Corpuscular Volume 104.9 fL (80.0-98.0); Mean Platelet Volume 11.1 fL (9.4-12.4); Monocytes Absolute Auto 0.5 X10*3/uL (0.1-1.2); Monocytes Percent Auto 8.7 % (2-11); Neutrophils Absolute Auto 2.9 x10*3/uL (2.0-8.3); Neutrophils Percent Auto 53.3 % (45-73); Platelet Count 138 X10*3/uL (160-400); Red Cell Distribution Width 13.1 % (11.0-16.0); White Blood Count 5.4 X10*3/uL (4.8-10.8)
[2025-03-16 13:40] LABS: Alanine Aminotransferase 11 U/L (0-40); Albumin Level 3.9 g/dL (3.5-5.0); Alkaline Phosphatase 89 U/L (39-117); Anion Gap 12 (12-20); Aspartate Amino Transferase 25 U/L (5-37); Bilirubin Total 0.7 mg/dL (0.0-1.0); Blood Urea Nitrogen 11 mg/dL (9-16); Calcium 9.6 mg/dL (8.4-10.2); Carbon Dioxide 27 mmol/L (22-29); Chloride 102 mmol/L (96-108); Estimated Glomerular Filt Rate > 60; Glucose Random 88 mg/dL (60-115); Potassium 4.8 mmol/L (3.3-5.1); Sodium 136 mmol/L (135-145); Total Protein 6.9 g/dL (6.5-8.0)
[2025-03-16 14:01] LABS: TSH reflex Free T4 4.64 uIU/mL (0.32-4.0)
[2025-03-16 14:35] LABS: Free T4 (Free Thyroxine) 1.13 ng/dL (0.71-1.85)
[2025-03-17 05:28] LABS: LDL Cholesterol Direct 74 mg/dL (<100)
== END 2025-03-16 08:53 | disposition home or self-care (01) ==
LOC: HO.HMGCLDS 08:52
PROVIDERS: PCP Internal Medicine; Visit Provider Internal Medicine
DX: I10 Essential (primary) hypertension (principal); E78.9 Disorder of lipoprotein metabolism, unspecified; F41.1 Generalized anxiety disorder; E03.8 Other specified hypothyroidism; R73.03 Prediabetes
CPT/HCPCS: 36415; 80053; 83036; 83721; 84439; 84443; 85025

== ENCOUNTER 2025-03-17 12:41 | Outpatient (AMB) | payer MEDICARE, SELFPAY ==
[2025-03-17 12:54] VITALS: BP 118/66; PULSE 58; TEMP 36.8; O2SAT 99; BMI 28.3
--- NOTE | 2025-03-17 12:54 | A.OFFPC_ITS ---
Vital Signs 03/17/25 12:54 Height 6 ft 2 in Weight 220 lb 2 oz BMI 28.3 BP 118/66 Blood Pressure Location Lt brachial Position Sitting Pulse 58 Pulse Source Pulse Oximeter Temp 98.2 F Temp Source Oral Pulse Oximetry (%) 99 Oxygen Delivery Method Room Air Intake Visit Reasons: Follow up visit Allergies celecoxib [Celebrex] Allergy (Unknown, Verified 03/17/25 12:56) worst knee pain and swelling clopidogrel [Plavix] Allergy (Unknown, Verified 03/17/25 12:56) rash azithromycin Adverse Reaction (Unknown, Verified 03/17/25 12:56) N/V Medication List - Last Reconciled 03/17/25 by Josué Saxena MD alprazolam 1 mg PO DAILY 30 days atorvastatin 40 mg PO DAILY 90 days carvedilol 12.5 mg PO BID 90 days cetirizine (Zyrtec) 10 mg PO DAILY PRN 90 days fluoxetine 40 mg (2 x 20 mg) PO DAILY 90 days levothyroxine 50 mcg PO DAILY 90 days lisinopril 20 mg PO DAILY 90 days sodium polystyrene sulfonate 15 grams (60 mL) PO DAILY 3 days tadalafil 5 mg PO DAILY 90 days Tobacco use date assessed: 03/17/25 Fall risk assessment: 2 + Falls in past year Last assessed Fall Risk: 03/17/25 Dental Screening Dental Screen Date: 03/17/25 Did you have a dental visit in the last 12 months?: Yes Did you have a dental problem in the last 6 months where you did not have access to dental care?: No Was dental information given to patient?: Patient has dentist HPI Follow up visit HPI Details History - The patient is a 70-year-old male pres enting for regular follow-up appointment . - History includes hyperlipidemia, which is currently well managed on atorvastatin, as indicated by very good cholesterol levels in the recent blood test. - Patient experiences mild constipation, which may be related to changes in diet after family members took over cooking. - Mild thyroid dysfunction was noted as the thyroid test showed slightly off values, leading to a consideration for an adjustment in thyroid medication. Problem List - Hyperlipidemia - Constipation - Mild Thyroid Dysfunction - generalized anxiety - hypertension essential Patient Instructions - Take Miralax by mixing one capful in a full glass of liquid every day to help with constipation. - Begin taking 75 micrograms of thyroid medication, up from the current 50 micrograms, as directed. - Continue regular use of allergy medica tion as previously advised to manage allergies. - Schedule and attend a follow-up lab vi sit and ensure the next appointment falls within a three-month window. Review of Systems - General: No fever no chills - Neurological: No headaches no dizziness - Ear nose throat: No sore throat no hearing difficulty no ear pain - Cardiovascular: No syncope, no chest pain, no palpitations - Gastrointestinal: No nausea vomiting or diarrhea - Endocrine: No polyuria polydipsia no heat intolerance - Genitourinary: No dysuria , no blood in urine Physical Exam General: No acute distress HEENT: No acute findings Neck: Supple Respiratory system: Able to talk in full sentences, no audible wheeze Cardiovascular: S1-S2 regular in rate and rhythm Gastrointestinal: A little bit of constipation Extremities: No new findings INDUSTRIAL LABORER: Alert awake oriented x3 motor sensory intact Skin: Normal turgor [facility] Medical History Hypertension, essential Elevated serum creatinine Other specified hypothyroidism Anxiety, generalized Lipid disorder Surgical History History of lumbar discectomy History of angioplasty Family History Father Alzheimer's disease Mother Respiratory failure Tuberculosis Maternal Grandfather No problems noted. Maternal Grandmother Stroke Paternal Grandfather No problems noted. Paternal Grandmother Parkinson disease Brother No problems noted. Brother No problems noted. Brother No problems noted. Brother No problems noted. Daughter No problems noted. Social History Housing: House Patient Tobacco Use Status: Current everyday Tobacco user Tobacco use type: Cigarette Cigarette Packs Per Day: 1 Years Smoked: 50 plus e-Cigarette/Vaping Use: Never Used service: No Current occupational status: retired and disabled Cognitive needs: No Hearing needs: No Vision needs: No Questionnaire PHQ-9 Over the last 2 weeks, how often have you been bothered by any of the following problems? 1. Little interest or pleasure in doing things: not at all 2. Feeling down, depressed, or hopeless: more than half the days 3. Trouble falling or staying asleep, or sleeping too much: several days 4. Feeling tired or having little energy: more than half the days 5. Poor appetite or overeating: not at all 6. Feeling bad about yourself - or that you are a failure or have let yourself or your family down: not at all 7. Trouble concentrating on things, such as reading the newspaper or watching television: not at all 8. Moving or speaking so slowly that other people could have noticed. Or the opposite - being so fidgety or restless that you have been moving around a lot more than usual: not at all 9. Thoughts that you would be better off or of hurting yourself in some way: not at all Total score: 5 Depression Screening Interpretation: Positive Depression Screening Done: Yes 57168 - PHQ-9 Billing: Yes Source: Developed by Drs. Peewee Pate, Christiane Glynn, Severiano Retana and colleagues, with an educational erica from [employer]. Thrive Questionnaire Date Thrive assessed: 03/17/25 I am a: Patient What is your living situation today?: I choose not to answer this question Within the past 12 months, did the food you bought not last and you didn't have the money to get more?: I choose not to answer this question Within the past 12 months, did you worry whether your food would run out before you got money to buy more?: I choose not to answer this question Do you have trouble paying for medicines?: I choose not to answer this question Do you have trouble getting transportation to medical appointments?: I choose not to answer this question Do you have trouble paying your heating and electricity bill?: I choose not to answer this question Do you have trouble taking care of your child, family member or friend?: I choose not to answer this question Do you have trouble with day-to-day activities such as bathing, preparing meals, shopping, managing finances, etc.?: I choose not to answer this question Are you currently unemployed and looking for a job?: I choose not to answer this question Are you interested in more education?: I choose not to answer this question Please select the resources that you would like help with: None Currently or been in a relationship where the following occur: I choose not to answer THRIVE Score: 0 AUDIT C Alcohol Use Questionnaire (AUDIT-C) 1. How often do you have a drink containing alcohol?: Never 3. How often do you have six or more drinks on one occasion?: Never Total Score: 0 MELLISA-7 AMB Questionnaire MELLISA-7 Date MELLISA - 7 assessed: 03/17/25 Feeling nervous, anxious, or on edge: 1 = Several days Not being able to stop or control worryin = Not at all Worrying too much about different things: 0 = Not at all Trouble relaxin = Not at all Being so restless that it is hard to sit still: 0 = Not at all Becoming easily annoyed or irritable: 0 = Not at all Feeling afraid as if something awful might happen: 0 = Not at all Total MELLISA-7 score (0-4 normal; 5-9 mild; 10-14 moderate; 15-21 severe): 1 Source: Developed by Drs. Peewee Pate, Christiane Glynn, Severiano Retana and colleagues, with an educational erica from [employer]. MELLISA-7 Assessment Billing MELLISA-7 Assessment Tool: MELLISA-7 Assessment 73839 Physical exam (Primary Care) Vital Signs: Last Vital Signs Temp 98.2 F 03/17/25 12:54 Pulse 58 03/17/25 12:54 BP 118/66 03/17/25 12:54 Pulse Ox 99 03/17/25 12:54 Oxygen Delivery Method Room Air 03/17/25 12:54 BMI result Body Mass Index 28.3 Tobacco/Smoking Status: Tobacco use Status Tobacco use date assessed 03/17/25 03/17/25 13:00 Patient Tobacco Use Status Current everyday Tobacco 03/17/25 13:00 Tobacco use type Cigarette 03/17/25 13:00 e-Cigarette/Vaping Use Never Used 03/17/25 13:00 PHQ-9: PHQ-9 Score PHQ-9: Total score 5 03/17/25 13:13 Depression Screening Interpretation: Positive Thrive Assessment: Date of Thrive Assessment Date Thrive assessed 03/17/25 03/17/25 13:00 Currently or been in a relationship where the following occur: I choose not to answer Coding Level of Care Code Est Pt Level 4 (26535) Complex EM visit Add On G2211 Diagnoses Hypertension, essential I10 Other specified hypothyroidism E03.8 Anxiety, generalized F41.1 Lipid disorder E78.9 Pre-diabetes R73.03 Additional Codes MELLISA-7 Assessment Billing - MELLISA-7 Assessment Tool: MELLISA-7 Assessment 08888 ([id number]) PHQ-9 - 69411 - PHQ-9 Billing: Yes ([id number]) Assessment & Plan Assessment & Plan (1) Hypertension, essential: Code(s): I10 - Essential (primary) hypertension Category: Medical (2) Other specified hypothyroidism: Code(s): E03.8 - Other specified hypothyroidism Category: Medical (3) Anxiety, generalized: Code(s): F41.1 - Generalized anxiety disorder Category: Medical (4) Lipid disorder: Code(s): E78.9 - Disorder of lipoprotein metabolism, unspecified Category: Medical (5) Pre-diabetes: Code(s): R73.03 - Prediabetes Category: Medical Plan History - The patient is a 70-year-old male presenting for regular follow-up appointment . - History includes hyperlipidemia, which is currently well managed on atorvastatin, as indicated by very good cholesterol levels in the recent blood test. - Patient experiences mild constipation, which may be related to changes in diet after family members took over cooking. - Mild thyroid dysfunction was noted as the thyroid test showed slightly off values, leading to a consideration for an adjustment in thyroid medication. Problem List - Hyperlipidemia - Constipation - Mild Thyroid Dysfunction - generalized anxiety - hypertension essential - prediabetes Patient Instructions - Take Miralax by mixing one capful in a full glass of liquid every day to help with constipation. - Begin taking 75 micrograms of thyroid medication, up from the current 50 micrograms, as directed. - Continue regular use of allergy medication as previously advised to manage allergies. - Schedule and attend a follow-up lab visit and ensure the next appointment falls within a three-month window. Orders: Orders Complete Blood Count Auto Diff 3 Months E03.8 - Other specified hypothyroidism, E78.9 - Disorder of lipoprotein metabolism, unspecified, F41.1 - Generalized anxiety disorder, I10 - Essential (primary) hypertension, R73.03 - Prediabetes LDL Cholesterol Direct Today E03.8 - Other specified hypothyroidism, E78.9 - Disorder of lipoprotein metabolism, unspecified, F41.1 - Generalized anxiety disorder, I10 - Essential (primary) hypertension, R73.03 - Prediabetes Hemoglobin A1c Today E03.8 - Other specified hypothyroidism, E78.9 - Disorder of lipoprotein metabolism, unspecified, F41.1 - Generalized anxiety disorder, I10 - Essential (primary) hypertension, R73.03 - Prediabetes TSH reflex Free T4 3 Months E03.8 - Other specified hypothyroidism, E78.9 - Disorder of lipoprotein metabolism, unspecified, F41.1 - Generalized anxiety disorder, I10 - Essential (primary) hypertension, R73.03 - Prediabetes Comprehensive Met. Panel 3 Months E03.8 - Other specified hypothyroidism, E78.9 - Disorder of lipoprotein metabolism, unspecified, F41.1 - Generalized anxiety disorder, I10 - Essential (primary) hypertension, R73.03 - Prediabetes Medications: Changed From levothyroxine 50 mcg PO DAILY 90 days 90 tabs 1RF E03.8 - Other specified hypothyroidism To levothyroxine 75 mcg PO DAILY 90 days 90 tabs 1RF E03.8 - Other specified hypothyroidism Refilled alprazolam 1 mg PO DAILY 30 days 30 tabs 2RF F41.1 - Generalized anxiety disorder atorvastatin 40 mg PO DAILY 90 days 90 tabs 1RF E78.9 - Disorder of lipoprotein metabolism, unspecified cetirizine (Zyrtec) 10 mg PO DAILY 90 days PRN 90 caps 1RF allergy symptoms fluoxetine 40 mg (2 x 20 mg) PO DAILY 90 days 180 caps 3RF sodium polystyrene sulfonate 15 grams (60 mL) PO DAILY 3 days 180 mL 0RF carvedilol must administer with a meal/food 12.5 mg PO BID 90 days 180 tabs 1RF levothyroxine 75 mcg PO DAILY 90 days 90 tabs 1RF E03.8 - Other specified hypothyroidism lisinopril 20 mg PO DAILY 90 days 90 tabs 1RF I10 - Essential (primary) h ypertension
--- OUTSIDE RECORDS SUMMARY | 2025-03-17 13:25 | XMS_ITS | Clinical Summary ---
Author Organization [facility], Address [address] [place] [address] [place] [address] Phone Care Team Providers Care Olive Grader Name Role Phone Josué Saxena MD Primary Care Provider [phone] Medications ALPRAZolam (XANAX) 1 MG tablet Take [...] complete this topic Insurance Medicare Care Teams Olive Grader Relationship Specialty Start Date End Date Josué Saxena MD [address] [place] [address] PCP - General Internal Medicine 01/07/21
--- OUTSIDE RECORDS SUMMARY | 2025-03-17 13:25 | XMS_ITS | Clinical Summary ---
Author Organization [facility] ity Address [address] [place] [address] Care Team Providers Care Military Logistics Specialist Name Role Phone Unavailable Primary Care Provider Unavailabl e Social History Tobacco Use Types Packs/Day Years Used Date Smoking Tobacco: Never Assessed Sex and Gender Information Value Date Recorded Sex Assigned at Not on file Legal Sex Male 9:24 PM EST Gender Identity Not on file Sexual Orientation Not on file Plan of Treatment Health Maintenance Due Date Last Done Comments DTaP,Tdap,and Td Vaccines (1 - Tdap) 1972 Pneumococcal Vaccine: 50+ Ye ars (1 of 1 - PCV) 2003 Zoster Vaccines (1 of 2) 2003 COVID-19 Vaccine ( - 2023-2 5 season) 2024 Influenza Vaccine (Season Ended) 2025 RSV Immunization Adult Patie nts (1 - 1-dose 75+ series) 2028 HIB Vaccines Aged Out No longer eligi ble based on patient's age to complete this topic HPV Vaccines Aged Out No longer eligi ble based on patient's age to complete this topic Hepatitis A Vaccines Aged Out No long er eligible based on patient's age to complete this topic Hepatitis B Vaccines Aged Out No long er eligible based on patient's age to complete this topic IPV Vaccines Aged Out No longer eligi ble based on patient's age to complete this topic MMR Vaccines Aged Out No longer eligi ble based on patient's age to complete this topic Meningococcal ACWY Vaccine Aged Out N o longer eligible based on patient's age to complete this topic Meningococcal B Vaccine Aged Out No l onger eligible based on patient's age to complete this topic RSV Immunization Patients Un noni 20 months Aged Out No longer eligible b ased on patient's age to complete this topic Varicella Vaccines Aged Out No longer eligible based on patient's age to complete this topic
== END 2025-03-17 13:12 | disposition home or self-care (01) ==
LOC: HO.HMCC 12:42
PROVIDERS: PCP Internal Medicine; Visit Provider Internal Medicine
DX: I10 Essential (primary) hypertension (principal); E03.8 Other specified hypothyroidism; F41.1 Generalized anxiety disorder; E78.9 Disorder of lipoprotein metabolism, unspecified; R73.03 Prediabetes

== ENCOUNTER → 2025-03-17 12:41 | Outpatient (BNVA) | payer MEDICARE, SELFPAY | PROVIDERS: PCP Internal Medicine; Visit Provider Internal Medicine | DX: I10 Essential (primary) hypertension (principal); E03.8 Other specified hypothyroidism; F41.1 Generalized anxiety disorder; E78.9 Disorder of lipoprotein metabolism, unspecified; R73.03 Prediabetes | CPT/HCPCS: 96127; 99212 ==

== ENCOUNTER 2025-07-11 11:01 | Outpatient (AMB) | payer MEDICARE, SELFPAY ==
[2025-07-11 11:05] VITALS: BP 118/70; PULSE 52; O2SAT 99; BMI 28.1
--- NOTE | 2025-07-11 11:05 | A.OFFPC_ITS ---
Vital Signs 07/11/25 11:05 Height 6 ft 2 in Weight 219 lb BMI 28.1 BP 118/70 Blood Pressure Location Lt brachial Position Sitting Pulse 52 Pulse Source Pulse Oximeter Pulse Oximetry (%) 99 Intake Visit Reasons: follow up Allergies celecoxib (Celebrex) Allergy (Unknown, Verified 07/11/25 11:06) worst knee pain and swelling clopidogrel (Plavix) Allergy (Unknown, Verified 07/11/25 11:06) rash azithromycin Adverse Reaction (Unknown, Verified 07/11/25 11:06) N/V Medication List - Last Reconciled 07/11/25 by Josué Saxena MD alprazolam 1 mg PO DAILY 30 days atorvastatin 40 mg PO DAILY 90 days carvedilol 12.5 mg PO BID 90 days cetirizine (Zyrtec) 10 mg PO DAILY PRN 90 days fluoxetine 40 mg (2 x 20 mg) PO DAILY 90 days levothyroxine 75 mcg PO DAILY 90 days lisinopril 20 mg PO DAILY 90 days tadalafil 5 mg PO DAILY 90 days Tobacco use date assessed: 03/17/25 Fall risk assessment: No Falls in past year Last assessed Fall Risk: 07/11/25 Dental Screening Dental Screen Date: 03/17/25 HPI follow up HPI Details Chief Complaint Longitudinal care visit History The patient is a 70-year-old male presenting with chronic obstructive pulmonary disease (COPD) and ulnar neuropathy. Chronic Obstructive Pulmonary Disease (COPD): - Patient has been experiencing difficul ties with breathing, particularly shortness of breath, and fatigue when exerting himself. - He continues to smoke less than one pa ck per day. - Denies having had a pulmonary function test previously. - Has not used inhalers. - Symptoms have been persistent and sugg est progressive COPD. Ulnar Neuropathy: - Reports numbness in the fourth and fif th digits of the right hand, worsening over time. - History includes a past elbow injury a t age 13, which possibly damaged the ulnar nerve. - Recent cut on the finger addressed, bu t no known inciting event causing it. - No simultaneous swelling or pain repor lior at the cut site. Medical History: - Prediabetes - Tobacco use disorder - Hypertension - Hypothyroidism - Lipid disorder - Anxiety Surgical History: - History of elbow injury with no specif ics of surgical intervention mentioned. Medications: - Alprazolam 1 mg daily - Atorvastatin 40 mg for lipid disorder - Carvedilol 12.5 mg for hypertension - Cetirizine for allergies - Fluoxetine 40 mg for anxiety - Levothyroxine 75 mg for hypothyroidism - Lisinopril 20 mg for hypertension - ClS 5 mg dosage not specified for symp tha control Social History: - Patient reports continued smoking, les s than a pack per day. - Experiences difficulties in exertion d ue to knee pain and ambient heat. - Patient attempts to manage smoking irene sation independently. - Activities limited by chronic pain. Problem List - Chronic Obstructive Pulmonary Disease (COPD) - Ulnar neuropathy right - Prediabetes - Hypertension - Hypothyroidism - Lipid disorder - Anxiety - Tobacco use disorder - cut between 5th and 4th digit right ch nd no signs of infection Diagnostic results - Labs (February): - White blood cell count : normal - Hemoglobin: normal - Electrolytes: within normal limits - Kidney functions: within normal limits - A1c: 5.4 indicating controlled blood s ugar - Liver enzymes: within normal limits - LDL: 74 indicating controlled choleste rol - TSH: 4.64 (higher end of normal) Patient Instructions - Schedule a pulmonary function test. - Repeat blood tests before the next vis it in three months. - Keep cuts clean, soak in warm saltwate r, and apply a Band-Aid once dried. - Monitor for symptoms of infection, see k care if symptoms develop. - Attempt smoking cessation with additio nal support if needed. - Maintain physical activity as tolerate d. - continue medications Review of Systems General: No fever no chills neurological: No headaches no dizziness ear nose throat: No sore throat no hearing difficulty no ear pain cardiovascular: No syncope, no chest pain, no palpitations gastrointestinal: No nausea vomiting or diarrhea endocrine: No polyuria polydipsia no heat intolerance genitourinary: No dysuria skin: No new complaints Physical Exam general: No acute distress HEENT: No acute findings neck: Supple respiratory system: Able to talk in full sentences, no audible wheeze no stridor cardiovascular: S1-S2 RRR gastrointestinal: No pain extremities: Cut between right hand fifth and fourth digit with numbness in the finger due to old injury in the elbow causing ulnar neuropathy 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 Maternal Grandmother Stroke Paternal Grandfather No problems noted. Paternal Grandmother Parkinson disease Brother No problems noted. Brother No problems noted. Brother No problems noted. Brother No problems noted. Daughter No problems noted. Social History Housing: House Patient Tobacco Use Status: Current everyday Tobacco user Tobacco use type: Cigarette Cigarette Packs Per Day: 1 Years Smoked: 50 plus e-Cigarette/Vaping Use: Never Used service: No Current occupational status: retired and disabled Cognitive needs: No Hearing needs: No Vision needs: No Questionnaire Thrive Questionnaire Date Thrive assessed: 07/11/25 I am a: Patient What is your living situation today?: I choose not to answer this question Within the past 12 months, did the food you bought not last and you didn't have the money to get more?: I choose not to answer this question Within the past 12 months, did you worry whether your food would run out before you got money to buy more?: I choose not to answer this question Do you have trouble paying for medicines?: I choose not to answer this question Do you have trouble getting transportation to medical appointments?: I choose not to answer this question Do you have trouble paying your heating and electricity bill?: I choose not to answer this question Do you have trouble taking care of your child, family member or friend?: I choose not to answer this question Do you have trouble with day-to-day activities such as bathing, preparing meals, shopping, managing finances, etc.?: I choose not to answer this question Are you currently unemployed and looking for a job?: I choose not to answer this question Are you interested in more education?: I choose not to answer this question Please select the resources that you would like help with: None Currently or been in a relationship where the following occur: I choose not to answer THRIVE Score: 0 MELLISA-7 AMB Questionnaire MELLISA-7 Date MELLISA - 7 assessed: 03/17/25 Source: Developed by Drs. Peewee Pate, Christiane Glynn, Severiano Retana and colleagues, with an educational erica from [employer]. Physical exam (Primary Care) Vital Signs: Last Vital Signs Pulse 52 07/11/25 11:05 BP 118/70 07/11/25 11:05 Pulse Ox 99 07/11/25 11:05 BMI result Body Mass Index 28.1 Tobacco/Smoking Status: Tobacco use Status Tobacco use date assessed 03/17/25 07/11/25 11:11 Patient Tobacco Use Status Current everyday Tobacco 07/11/25 11:11 Tobacco use type Cigarette 07/11/25 11:11 e-Cigarette/Vaping Use Never Used 07/11/25 11:11 Thrive Assessment: Date of Thrive Assessment Date Thrive assessed 07/11/25 07/11/25 11:11 Currently or been in a relationship where the following occur: I choose not to answer Coding Level of Care Code Est Pt Level 4 (80052) Complex EM visit Add On G2211 Diagnoses Short of breath on exertion R06.02 Cut of right hand, initial encounter S61.411A Encounter type: initial encounter Tobacco use disorder F17.200 Other specified hypothyroidism E03.8 Ulnar neuropathy of right upper extremity G56.21 Anxiety, generalized F41.1 Hypertension, essential I10 Lipid disorder E78.9 Pre-diabetes R73.03 Assessment & Plan Assessment & Plan (1) Short of breath on exertion: Code(s): R06.02 - Shortness of breath Category: Medical (2) Cut of right hand: Code(s): S61.411A - Laceration without foreign body of right hand, initial encounter Category: Medical Qualifiers: Encounter type: initial encounter Qualified Code(s): S61.411A - Laceration without foreign body of right hand, initial encounter (3) Tobacco use disorder: Code(s): F17.200 - Nicotine dependence, unspecified, uncomplicated Category: Medical (4) Other specified hypothyroidism: Code(s): E03.8 - Other specified hypothyroidism Category: Medical (5) Ulnar neuropathy of right upper extremity: Code(s): G56.21 - Lesion of ulnar nerve, right upper limb Category: Medical (6) Anxiety, generalized: Code(s): F41.1 - Generalized anxiety disorder Category: Medical (7) Hypertension, essential: Code(s): I10 - Essential (primary) hypertension Category: Medical (8) Lipid disorder: Code(s): E78.9 - Disorder of lipoprotein metabolism, unspecified Category: Medical (9) Pre-diabetes: Code(s): R73.03 - Prediabetes Category: Medical Plan Chief Complaint Longitudinal care visit History The patient is a 70-year-old male presenting with chronic obstructive pulmonary disease (COPD) and ulnar neuropathy. Chronic Obstructive Pulmonary Disease (COPD): - Patient has been experiencing difficulties with breathing, particularly lala rtness of breath, and fatigue when exerting himself. - He continues to smoke less than one pack per day. - Denies having had a pulmonary function test previously. - Has not used inhalers. - Symptoms have been persistent and suggest progressive COPD. Ulnar Neuropathy: - Reports numbness in the fourth and fifth digits of the right hand, worsening over time. - History includes a past elbow injury at age 13, which possibly damaged the ulnar nerve. - Recent cut on the finger addressed, but no known inciting event causing it. - No simultaneous swelling or pain reported at the cut site. Medical History: - Prediabetes - Tobacco use disorder - Hypertension - Hypothyroidism - Lipid disorder - Anxiety Surgical History: - History of elbow injury with no specifics of surgical intervention mentioned. Medications: - Alprazolam 1 mg daily - Atorvastatin 40 mg for lipid disorder - Carvedilol 12.5 mg for hypertension - Cetirizine for allergies - Fluoxetine 40 mg for anxiety - Levothyroxine 75 mg for hypothyroidism - Lisinopril 20 mg for hypertension - ClS 5 mg dosage not specified for symptom control Social History: - Patient reports continued smoking, less than a pack per day. - Experiences difficulties in exertion due to knee pain and ambient heat. - Patient attempts to manage smoking cessation independently. - Activities limited by chronic pain. Problem List - Chronic Obstructive Pulmonary Disease (COPD) - Ulnar neuropathy right - Prediabetes - Hypertension - Hypothyroidism - Lipid disorder - Anxiety - Tobacco use disorder - cut between 5th and 4th digit right hand no signs of infection Diagnostic results - Labs (February): - White blood cell count: normal - Hemoglobin: normal - Electrolytes: within normal limits - Kidney functions: within normal limits - A1c: 5.4 indicating controlled blood sugar - Liver enzymes: within normal limits - LDL: 74 indicating controlled cholesterol - TSH: 4.64 (higher end of normal) Patient Instructions - Schedule a pulmonary function test. - Repeat blood tests before the next visit in three months. - Keep cuts clean, soak in warm saltwater, and apply a Band-Aid once dried. - Monitor for symptoms of infection, seek care if symptoms develop. - Attempt smoking cessation with additional support if needed. - Maintain physical activity as tolerated. - continue medications Orders: Orders Comprehensive [place]. Panel Fast Today E03.8 - Other specified hypothyroidism, E78.9 - Disorder of lipoprotein metabolism, unspecified, F17.200 - Nicotine dependence, unspecified, uncomplicated, F41.1 - Generalized anxiety disorder, G56.21 - Lesion of ulnar nerve, right upper limb, I10 - Essential (primary) hypertension, R06.02 - Shortness of breath, R73.03 - Prediabetes Vitamin B12 Today E03.8 - Other specified hypothyroidism, E78.9 - Disorder of lipoprotein metabolism, unspecified, F17.200 - Nicotine dependence, unspecified, uncomplicated, F41.1 - Generalized anxiety disorder, G56.21 - Lesion of ulnar nerve, right upper limb, I10 - Essential (primary) hypertension, R06.02 - Shortness of breath, R73.03 - Prediabetes PFT pulmonary function test Today F17.200 - Nicotine dependence, unspecified, uncomplicated, R06.02 - Shortness of breath Complete Blood Count Auto Diff Today E03.8 - Other specified hypothyroidism, E78.9 - Disorder of lipoprotein metabolism, unspecified, F17.200 - Nicotine dependence, unspecified, uncomplicated, F41.1 - Generalized anxiety disorder, G56.21 - Lesion of ulnar nerve, right upper limb, I10 - Essential (primary) hypertension, R06.02 - Shortness of breath, R73.03 - Prediabetes TSH reflex Free T4 Today E03.8 - Other specified hypothyroidism, E78.9 - Disorder of lipoprotein metabolism, unspecified, F17.200 - Nicotine dependence, unspecified, uncomplicated, F41.1 - Generalized anxiety disorder, G56.21 - Lesion of ulnar nerve, right upper limb, I10 - Essential (primary) hypertension, R06.02 - Shortness of breath, R73.03 - Prediabetes Lipid Panel Today E03.8 - Other specified hypothyroidism, E78.9 - Disorder of lipoprotein metabolism, unspecified, F17.200 - Nicotine dependence, unspecified, uncomplicated, F41.1 - Generalized anxiety disorder, G56.21 - Lesion of ulnar nerve, right upper limb, I10 - Essential (primary) hypertension, R06.02 - Shortness of breath, R73.03 - Prediabetes Vitamin D 25-OH (D2 and D3) Today E03.8 - Other specified hypothyroidism, E78.9 - Disorder of lipoprotein metabolism, unspecified, F17.200 - Nicotine dependence, unspecified, uncomplicated, F41.1 - Generalized anxiety disorder, G56.21 - Lesion of ulnar nerve, right upper limb, I10 - Essential (primary) hypertension, R06.02 - Shortness of breath, R73.03 - Prediabetes Medications: Refilled atorvastatin 40 mg PO DAILY 90 tabs 1RF 90 days E78.9 - Disorder of lipoprotein metabolism, unspecified carvedilol must administer with a meal/food 12.5 mg PO BID 180 tabs 1RF 90 days levothyroxine 75 mcg PO DAILY 90 tabs 1RF 90 days E03.8 - Other specified hypothyroidism alprazolam 1 mg PO DAILY 30 tabs 2RF 30 days F41.1 - Generalized anxiety disorder cetirizine (Zyrtec) 10 mg PO DAILY PRN 90 caps 1RF allergy symptoms 90 days fluoxetine 40 mg (2 x 20 mg) PO DAILY 180 caps 3RF 90 days lisinopril 20 mg PO DAILY 90 tabs 1RF 90 days I10 - Essential (primary) hypertension
--- OUTSIDE RECORDS SUMMARY | 2025-07-11 12:34 | XMS_ITS | Clinical Summary ---
Author Organization [facility], Address [address] [place] [address] [place] [address] Phone Care Team Providers Care Patternmaker Metal Name Role Phone Josué Saxena MD Primary Care Provider [phone] Medications ALPRAZolam (XANAX) 1 MG tablet Take [...] of 1 - PCV) 2003 Influenza Vaccine (#1) 2025 Hepatitis B Vaccine Aged Out No longe r eligible based on patient's age to complete this topic Insurance Medicare Care Teams Patternmaker Metal Relationship Specialty Start Date End Date Josué Saxena MD [address] [place] [address] PCP - General Internal Medicine 01/07/21
--- OUTSIDE RECORDS SUMMARY | 2025-07-11 12:34 | XMS_ITS | Clinical Summary ---
Author Organization [facility] ity Address [address] [place] [address] Care Team Providers Care Box Toe Flanger Stitchdowns Name Role Phone Unavailable Primary Care Provider [...] Vaccines (1 of 2) 2003 COVID-19 Vaccine (1 - 2023-2 5 season) 2024 Depression Screening 11/23/2024 Influenza Vaccine (#1) 2025 RSV Immunization Adult Patie nts (1 [...]
== END 2025-07-11 11:23 | disposition home or self-care (01) ==
LOC: HO.HMCC 11:02
PROVIDERS: PCP Internal Medicine; Visit Provider Internal Medicine
DX: R06.02 Shortness of breath (principal); S61.411A Laceration without foreign body of right hand, initial encounter; F17.200 Nicotine dependence, unspecified, uncomplicated; E03.8 Other specified hypothyroidism; G56.21 Lesion of ulnar nerve, right upper limb; F41.1 Generalized anxiety disorder; I10 Essential (primary) hypertension; E78.9 Disorder of lipoprotein metabolism, unspecified; R73.03 Prediabetes

== ENCOUNTER → 2025-07-11 11:01 | Outpatient (BNVA) | payer MEDICARE, SELFPAY | PROVIDERS: PCP Internal Medicine; Visit Provider Internal Medicine | DX: R06.02 Shortness of breath (principal); J44.9 Chronic obstructive pulmonary disease, unspecified; G56.21 Lesion of ulnar nerve, right upper limb; E03.8 Other specified hypothyroidism; F41.1 Generalized anxiety disorder; I10 Essential (primary) hypertension; F17.210 Nicotine dependence, cigarettes, uncomplicated; S61.411A Laceration without foreign body of right hand, initial encounter; X58.XXXA Exposure to other specified factors, initial encounter; Y93.9 Activity, unspecified; Y92.9 Unspecified place or not applicable; Y99.9 Unspecified external cause status | CPT/HCPCS: 99212 ==

== ENCOUNTER 2025-09-13 13:05 | Outpatient (REF) | payer MEDICARE, SELFPAY ==
--- NOTE | 2025-09-13 13:09 | PFT_ITS ---
Indication: Tobacco dependency Spirometry FEV1 to FVC 50%; FEV1 1.93 L; FVC 3.88 L. The trend response to bronchodilators noted. Lung Volumes Lung volumes could not be achieved due to the patient's inability to perform the nitrogen washout. Diffusion Capacity DLCO 51% predicted Methacholine Challenge [] Flow Volume Loops Concavity during the expiratory limb suggesting an obstructive physiology MVV 57% predicted Comparisons None Interpretation There is an obstructive ventilatory defect consistent with moderate to severe COPD. Trend response to bronchodilators noted. Lung volumes could not be achieved. The patient does have a moderate diffusion impairment. Clinical correlation warranted. MTDD
[2025-09-13 13:45] VITALS: PULSE 60; O2SAT 97
--- OUTSIDE RECORDS SUMMARY | 2025-09-13 18:23 | XMS_ITS | Clinical Summary ---
Author Organization [facility] ity Address [address] [place] [address] Care Team Providers Care Ground Surveillance Systems Operator Name Role Phone Unavailable Primary Care Provider [...] 2003 Zoster Vaccines (1 of 2) 2003 Depression Screening 11/23/2024 COVID-19 Vaccine (1 - 2023-2 5 season) 2025 Influenza Vaccine (#1) 2025 RSV Immunization Adult [...]
== END 2025-09-13 13:06 | disposition home or self-care (01) ==
LOC: HO.RESP 13:05
PROVIDERS: PCP Internal Medicine; Visit Provider Internal Medicine
DX: R06.02 Shortness of breath (principal); F17.220 Nicotine dependence, chewing tobacco, uncomplicated
CPT/HCPCS: 94060; 94640; 94729

== ENCOUNTER → 2025-09-13 13:09 | Outpatient (BNV) | payer MEDICARE, SELFPAY | PROVIDERS: PCP Internal Medicine; Visit Provider Hospitalist | DX: J98.4 Other disorders of lung (principal) | CPT/HCPCS: 94060; 94727; 94729 ==

== ENCOUNTER 2025-10-11 13:57 | Outpatient (REF) | payer MEDICARE, SELFPAY ==
[2025-10-11 16:03] LABS: MANUAL DIFF FLAG NO
[2025-10-11 16:13] LABS: Hematocrit 39.4 % (42.0-52.0); Hemoglobin 13.2 g/dl (14.0-18.0); Imm Gran Abs Auto 0.03 X10*3/uL (0.00-0.03); Imm Gran Pct Auto 0.6 % (0.0-0.4); Lymphocytes Absolute Auto 1.1 X10*3/uL (1.2-4.9); Mean Corpuscular HGB Conc 33.5 g/dl (31.0-36.0); Mean Corpuscular Hemoglobin 35.7 pg (27.0-33.0); Mean Corpuscular Volume 106.5 fL (80.0-98.0); NRBC Abs Auto 0.000 X10*3/uL (0.0-0.012); NRBC Pct Auto 0.0 /100WBC (0.0-0.2); Platelet Count 131 X10*3/uL (160-400); Red Blood Count 3.70 X10*6/uL (4.60-5.80); White Blood Count 5.0 X10*3/uL (4.8-10.8)
[2025-10-11 16:45] LABS: Alanine Aminotransferase 9 U/L (0-40); Albumin Level 3.9 g/dL (3.5-5.0); Alkaline Phosphatase 90 U/L (39-117); Anion Gap 12 (12-20); Aspartate Amino Transferase 26 U/L (5-37); Blood Urea Nitrogen 13 mg/dL (9-16); Calcium 9.3 mg/dL (8.4-10.2); Carbon Dioxide 28 mmol/L (22-29); Chloride 103 mmol/L (96-108); Cholesterol 111 mg/dL (<200); Estimated Glomerular Filt Rate > 60; HDL Cholesterol 36 mg/dL (>40); Potassium 4.8 mmol/L (3.3-5.1); Sodium 138 mmol/L (135-145); Total Protein 6.6 g/dL (6.5-8.0); Triglycerides 114 mg/dL (<150)
[2025-10-11 17:37] LABS: Vitamin B12 289 pg/mL (200-900)
--- OUTSIDE RECORDS SUMMARY | 2025-10-12 02:07 | XMS_ITS | Clinical Summary ---
Author Organization [facility], Address [address] [place] [address] [place] [address] Phone Care Team Providers Care Hosiery Mater Name Role Phone Josué Saxena MD Primary Care Provider [phone] Medications ALPRAZolam (XANAX) 1 MG tablet Take [...] complete this topic Insurance Medicare Care Teams Hosiery Mater Relationship Specialty Start Date End Date Josué Saxena MD [address] [place] [address] PCP - General Internal Medicine 01/07/21
[2025-10-15 13:09] LABS: Vitamin D 25-OH, D2 <4 ng/mL; Vitamin D 25-OH, D3 11 ng/mL; Vitamin D 25-OH, Total 11 ng/mL (30-100)
== END 2025-10-11 13:58 | disposition home or self-care (01) ==
LOC: HO.HMGCLDS 13:57
PROVIDERS: PCP Internal Medicine; Visit Provider Internal Medicine
DX: I10 Essential (primary) hypertension (principal); G56.21 Lesion of ulnar nerve, right upper limb; R06.02 Shortness of breath; F41.1 Generalized anxiety disorder; R73.03 Prediabetes; E03.8 Other specified hypothyroidism; E78.9 Disorder of lipoprotein metabolism, unspecified; F17.200 Nicotine dependence, unspecified, uncomplicated
CPT/HCPCS: 36415; 80053; 80061; 82306; 82607; 84443; 85025

== ENCOUNTER 2025-10-13 12:30 | Outpatient (AMB) | payer MEDICARE, SELFPAY ==
--- NOTE | 2025-10-13 12:35 | A.OFFPC_ITS ---
Vital Signs 10/13/25 12:36 Height 6 ft 2 in Weight 213 lb BMI 27.3 BP 110/72 Blood Pressure Location Lt brachial Position Sitting Pulse 50 Pulse Source Pulse Oximeter Pulse Oximetry (%) 99 Oxygen Delivery Method Room Air Intake Visit Reasons: annual Allergies celecoxib (Celebrex) Allergy (Unknown, Verified 10/13/25 12:37) worst knee pain and swelling clopidogrel (Plavix) Allergy (Unknown, Verified 10/13/25 12:37) rash azithromycin Adverse Reaction (Unknown, Verified 10/13/25 12:37) N/V Medication List - Last Reconciled 10/13/25 by Josué Saxena MD alprazolam 1 mg PO DAILY 30 days atorvastatin 40 mg PO DAILY 90 days carvedilol 12.5 mg PO BID 90 days cetirizine (Zyrtec) 10 mg PO DAILY PRN 90 days fluoxetine 40 mg (2 x 20 mg) PO DAILY 90 days levothyroxine 75 mcg PO DAILY 90 days lisinopril 20 mg PO DAILY 90 days tadalafil 5 mg PO DAILY 90 days Tobacco use date assessed: 03/17/25 Fall risk assessment: No Falls in past year Last assessed Fall Risk: 10/13/25 Dental Screening Dental Screen Date: 03/17/25 HPI HPI Comments History of Present Illness Details History of Present Illness The patient is a 70 year old individual presenting for a follow-up appointment and review of recent lab results. Microcytic Anemia: - Recent labs revealed a hemoglobin of 1 3.2 g/dL, a drop from 15.1 g/dL in February, with microcytic indices. - The patient has a history of hemorrhoi ds, which may be a source of microscopic bleeding, although the patient has not noticed any visible blood. - The patient recalls taking iron supple ments many years ago, which resulted in improved energy levels and resolution of daytime naps. Vitamin B12 Deficiency: - Recent labs showed a vitamin B12 level of 289. Chronic Obstructive Pulmonary Disease: - The patient reports shortness of breat h with excessive movement. - A breathing test performed in August, about a month ago, showed a moderate to severe obstructive ventilatory defect, with a noted response to a bronchodilator. - The patient has a history of smoking a nd has recently cut down to fewer than 10 cigarettes per day. - The patient has some previous experien ce using inhalers. Hyperlipidemia: - The patient is on atorvastatin 40 mg f or lipid disorder, and recent labs show an LDL of 53. - The patient experiences leg pain and q uestions if it could be a side effect of the statin medication. Hypertension: - Managed with carvedilol 12.5 mg and li sinopril 20 mg. - Blood pressure was noted to be okay du ring the visit. Hypothyroidism: - Managed with levothyroxine 75 mcg. - Recent TSH level was within the normal limit. Anxiety: - The patient is taking alprazolam 1 mg and fluoxetine 40 mg for anxiety. Preventative Care: Colon Cancer Screening: - A Cologuard kit was ordered for the nilo sawyer last year, but the patient never sent the kit back and is unsure of its whereabouts. - The previous kit is now . Constipation: - The patient reports occasional constip ation and a sensation of fullness. - The patient uses Dulcolax as needed fo r relief. Medical History: - Hypertension, managed with carvedilol and lisinopril. - Hyperlipidemia, managed with atorvasta tin. - Hypothyroidism, managed with levothyro xine. - Anxiety, managed with alprazolam and f luoxetine. - Chronic Obstructive Pulmonary Disease, diagnosed as moderate to severe. - Hemorrhoids - Tobacco use Medications - Alprazolam 1 mg for anxiety - Atorvastatin 40 mg for lipid disorder - Carvedilol 12.5 mg for hypertension - Lisinopril 20 mg for hypertension - Levothyroxine 75 mcg for hypothyroidis m - Fluoxetine 40 mg for anxiety - Dulcolax as needed for constipation Employment - The patient is retired/disabled. [facility] Medical History Hypertension, essential Elevated serum creatinine Other specified hypothyroidism Anxiety, generalized Lipid disorder Surgical History History of lumbar discectomy History of angioplasty Family History Father Alzheimer's disease Mother Respiratory failure Tuberculosis Maternal Grandfather No problems noted. Maternal Grandmother Stroke Paternal Grandfather No problems noted. Paternal Grandmother Parkinson disease Brother No problems noted. Brother No problems noted. Brother No problems noted. Brother No problems noted. Daughter No problems noted. Social History Housing: House Patient Tobacco Use Status: Current everyday Tobacco user Tobacco use type: Cigarette Cigarette Packs Per Day: 1 Years Smoked: 50 plus e-Cigarette/Vaping Use: Never Used service: No Current occupational status: retired and disabled Cognitive needs: No Hearing needs: No Vision needs: No Questionnaire Thrive Questionnaire Date Thrive assessed: 03/17/25 I am a: Patient What is your living situation today?: I choose not to answer this question Within the past 12 months, did the food you bought not last and you didn't have the money to get more?: I choose not to answer this question Within the past 12 months, did you worry whether your food would run out before you got money to buy more?: I choose not to answer this question Do you have trouble paying for medicines?: I choose not to answer this question Do you have trouble getting transportation to medical appointments?: I choose not to answer this question Do you have trouble paying your heating and electricity bill?: I choose not to answer this question Do you have trouble taking care of your child, family member or friend?: I choose not to answer this question Do you have trouble with day-to-day activities such as bathing, preparing meals, shopping, managing finances, etc.?: I choose not to answer this question Are you currently unemployed and looking for a job?: I choose not to answer this question Are you interested in more education?: I choose not to answer this question Please select the resources that you would like help with: None Currently or been in a relationship where the following occur: I choose not to answer THRIVE Score: 0 MELLISA-7 AMB Questionnaire MELLISA-7 Date MELLISA - 7 assessed: 03/17/25 Source: Developed by Drs. Peewee Pate, Christiane Glynn, Severiano Retana and colleagues, with an educational erica from [employer]. Review of Systems Narrative Review of Systems - General: No fever no chills - Neurological: No headaches no dizziness - Ear nose throat: No sore throat no hearing difficulty no ear pain - Cardiovascular: No syncope, no chest pain, no palpitations - Gastrointestinal: No nausea vomiting or diarrhea - Endocrine: No polyuria polydipsia no heat intolerance - Genitourinary: No dysuria - Skin: No new complaints Physical exam (Primary Care) Vital Signs: Last Vital Signs Pulse 50 10/13/25 12:36 BP 110/72 10/13/25 12:36 Pulse Ox 99 10/13/25 12:36 Oxygen Delivery Method Room Air 10/13/25 12:36 BMI result Body Mass Index 27.3 Tobacco/Smoking Status: Tobacco use Status Tobacco use date assessed 03/17/25 10/13/25 12:39 Patient Tobacco Use Status Current everyday Tobacco 10/13/25 12:39 Tobacco use type Cigarette 10/13/25 12:39 e-Cigarette/Vaping Use Never Used 10/13/25 12:39 Thrive Assessment: Date of Thrive Assessment Date Thrive assessed 03/17/25 10/13/25 12:39 Currently or been in a relationship where the following occur: I choose not to answer Narrative Diagnostic results - Labs (from 2 days ago): - Hemoglobin: 13.2 g/dL (a decrease from 15.1 in February) with microcytic indices. - Electrolytes and kidney function: Normal. - Fasting sugar: 91. - Liver enzymes: Within normal limit. - LDL: 53. - Vitamin B12: 289. - TSH: Within normal limit. - Tests and Diagnostics: - Pulmonary Function Test (from August): Revealed moderate to severe obstructive ventilatory defect consistent with COPD with a positive response to a bronchodilator. Physical Exam General: Cooperative, healthy appearing, comfortable, no acute distress Orientation: Patient oriented x3 Head: Normal to inspection Ears: Within normal limit visually Nose: Normal external nose present Face and sinus: Normal facial exam Eyes: Appearance normal, extraocular movement intact pupils reactive Neck: Normal visual inspection and supple Respiratory: Normal respiratory effort and able to speak in complete sentences. Clear to auscultation, no stridor. Shortness of breath noted with exertion. Obstructive ventilatory defect consistent with moderate to severe COPD. Cardiovascular: S1 and S2 RRR GI: Normal to inspection. Soft to palpation and nontender Skin: Turgor normal, no acute findings Neuro: Patient oriented x3, motor sensory intact, balance intact, tandem failed Extremities: Normal to inspection . Coding Level of Care Code Est Pt Level 4 (70948) Est Pt Prev Care >65y(94508) Diagnoses Encounter for general adult medical examination with abnormal findings Z00.01 Severe chronic obstructive pulmonary disease J44.9 Microcytic anemia D50.9 Hypertension, essential I10 Other specified hypothyroidism E03.8 Pre-diabetes R73.03 Lipid disorder E78.9 B12 deficiency E53.8 Assessment & Plan Assessment & Plan (1) Encounter for general adult medical examination with abnormal findings: Code(s): Z00.01 - Encounter for general adult medical examination with abnormal findings Category: Medical (2) Severe chronic obstructive pulmonary disease: Code(s): J44.9 - Chronic obstructive pulmonary disease, unspecified Category: Medical (3) Microcytic anemia: Code(s): D50.9 - Iron deficiency anemia, unspecified Category: Medical (4) Hypertension, essential: Code(s): I10 - Essential (primary) hypertension Category: Medical (5) Other specified hypothyroidism: Code(s): E03.8 - Other specified hypothyroidism Category: Medical (6) Pre-diabetes: Code(s): R73.03 - Prediabetes Category: Medical (7) Lipid disorder: Code(s): E78.9 - Disorder of lipoprotein metabolism, unspecified Category: Medical (8) B12 deficiency: Code(s): E53.8 - Deficiency of other specified B group vitamins Category: Medical Plan Patient Instructions - Start taking one Vitamin B12 supplement tablet daily. - Start taking one iron supplement tablet daily. - Please be aware that iron can cause constipation, so it is important to eat more fiber. - You may stop taking your atorvastatin (cholesterol medication) to see if your leg pain improves. - You will be sent a new Cologuard kit for colon cancer screening. - Please be sure to complete it and mail it back. - An inhaler has been ordered to help with your breathing. advair - You can start by using it once in the morning and see how you feel. - If needed, you can use it twice a day, about 12 hours apart. - After using the inhaler, rinse your mouth with water and either swallow or spit it out to prevent an infection called thrush. - If your insurance does not cover the inhaler, please call the office so we can find a different one for you. - It is very important to stop smoking to keep your breathing problems from getting worse and to delay needing to use oxygen in the future. - You will need to get new lab work done in three months, before your next appointment. Orders: Orders Comprehensive Met. Panel 3 Months D50.9 - Iron deficiency anemia, unspecified, E03.8 - Other specified hypothyroidism, E53.8 - Deficiency of other specified B group vitamins, E78.9 - Disorder of lipoprotein metabolism, unspecified, I10 - Essential (primary) hypertension, R73.03 - Prediabetes, Z00.01 - Encounter for general adult medical examination with abnormal findings Ferritin 3 Months D50.9 - Iron deficiency anemia, unspecified, E03.8 - Other specified hypothyroidism, E53.8 - Deficiency of other specified B group vitamins, E78.9 - Disorder of lipoprotein metabolism, unspecified, I10 - Essential (primary) hypertension, R73.03 - Prediabetes, Z00.01 - Encounter for general adult medical examination with abnormal findings Complete Blood Count Auto Diff 3 Months D50.9 - Iron deficiency anemia, unspecified, E03.8 - Other specified hypothyroidism, E53.8 - Deficiency of other specified B group vitamins, E78.9 - Disorder of lipoprotein metabolism, unspecified, I10 - Essential (primary) hypertension, R73.03 - Prediabetes, Z00.01 - Encounter for general adult medical examination with abnormal findings Referrals Cologuard Test Z12.11 - Encounter for screening for malignant neoplasm of colon, Z12.12 - Encounter for screening for malignant neoplasm of rectum Medications: New cyanocobalamin (vitamin B-12) 1,000 mcg PO DAILY 90 tabs 0RF 90 days fluticasone propion-salmeterol 230-21 mcg/actuation (Advair HFA) 2 puffs inhalation Q12H 12 grams 0RF 30 days ferrous sulfate 324 mg PO .qd 90 tabs 0RF 90 days Refilled alprazolam 1 mg PO DAILY 30 tabs 2RF 30 days F41.1 - Generalized anxiety disorder On Hold atorvastatin Hold Comment: sore legs 40 mg PO DAILY 90 tabs 1RF 90 days E78.9 - Disorder of lipoprotein metabolism, unspecified
[2025-10-13 12:36] VITALS: BP 110/72; PULSE 50; O2SAT 99; BMI 27.3
--- OUTSIDE RECORDS SUMMARY | 2025-10-13 12:50 | XMS_ITS | Clinical Summary ---
Author Organization [facility] ity Address [address] [place] [address] Care Team Providers Care Household Refrigeration Mechanic Name Role Phone Unavailable Primary Care Provider [...] Depression Screening 11/23/2024 COVID-19 Vaccine (1 - 2024-2 6 season) 2025 Influenza Vaccine (#1) 2025 RSV [...]
--- OUTSIDE RECORDS SUMMARY | 2025-10-13 12:50 | XMS_ITS | Clinical Summary ---
Author Organization [facility], Address [address] [place] [address] [place] [address] Phone Care Team Providers Care Weigher And Grader Name Role Phone Josué Saxena MD Primary Care Provider [phone] Medications ALPRAZolam (XANAX) 1 MG tablet Take [...] complete this topic Insurance Medicare Care Teams Weigher And Grader Relationship Specialty Start Date End Date Josué Saxena MD [address] [place] [address] PCP - General Internal Medicine 01/07/21
== END 2025-10-13 13:05 | disposition home or self-care (01) ==
LOC: HO.HMCC 12:31
PROVIDERS: PCP Internal Medicine; Visit Provider Internal Medicine
DX: Z00.01 Encounter for general adult medical examination with abnormal findings (principal); J44.9 Chronic obstructive pulmonary disease, unspecified; D50.9 Iron deficiency anemia, unspecified; I10 Essential (primary) hypertension; E03.8 Other specified hypothyroidism; R73.03 Prediabetes; E78.9 Disorder of lipoprotein metabolism, unspecified; E53.8 Deficiency of other specified B group vitamins

== ENCOUNTER → 2025-10-13 12:30 | Outpatient (BNVA) | payer MEDICARE, SELFPAY | PROVIDERS: PCP Internal Medicine; Visit Provider Internal Medicine | DX: Z00.01 Encounter for general adult medical examination with abnormal findings (principal); I10 Essential (primary) hypertension; D50.9 Iron deficiency anemia, unspecified; E53.8 Deficiency of other specified B group vitamins; J44.9 Chronic obstructive pulmonary disease, unspecified; E78.5 Hyperlipidemia, unspecified; F41.9 Anxiety disorder, unspecified; K59.00 Constipation, unspecified; R73.03 Prediabetes; E03.8 Other specified hypothyroidism | CPT/HCPCS: 99212; 99397 ==